=== PATIENT | female | born 1960 | race Caucasian/White ===

== ENCOUNTER 2017-04-08 08:36 | Observation (INO) ==
[2017-04-08] MEDS ORDERED: 0.9 % Sodium Chloride 1,000 ML IVC ONE (08:52)
--- NOTE | 2017-04-08 09:24 | Emergency Department Note ---
Disposition Clinical Impression: ACS (acute coronary syndrome), Acute electrocardiogram changes Syncope Qualifiers: Syncope type: unspecified Qualified Code(s): R55 - Syncope and collapse Disposition: Admitted As Inpatient Referrals: Josr Patel MD [Primary Care Provider] - Forms: ED Satisfaction Letter Time of Disposition: 11:00 General Adult HPI - General Chief complaint: ED Syncope Stated complaint: Syncope Time Seen by Provider: 04/08/17 08:41 Source: patient, family, EMS Limitations: no limitations Nursing Notes Reviewed: Yes Vital Signs Reviewed: Yes - History of Present Illness HPI Narrative: History of present illness: 56-year-old female sent from her primary care provider's office Dr. Johnson, please fax copy of ER report. Patient was sent over for near-syncope and documented hypotension and office. Patient's blood pressure was 80 systolic her blood sugar was 184 she has no Randell, Corgard artery disease long-standing uncontrolled diabetes with peripheral neuropathy. Patient is awake and alert at this current time denies any chest pain vomiting fevers chills medication changes L contacts exotic food or recent travel. Patient denies any specific injury or fully syncopal event. She says in general this is been going on for about 3 months and she has not seen her primary care provider in about that period of time so this is the first contact with providers for the symptoms. Patient says this is no aggravating or alleviating factors it can happen whether she is up or down exertion or rest. Is that she just feels washed out as some back pain. Her blood pressures dropping sweats. Denies palpitations. Denies chest pain or shortness of breath at this time. Pain Scale: 8 - Related Data Home Medications Medication Instructions Recorded Confirmed Gabapentin [Neurontin] 900 mg PO HS 07/17/15 02/06/17 Insulin ASPART [Novolog Flexpen] 0 unit SQ TIDWM 07/17/15 02/06/17 Insulin Glargine,Hum.rec.anlog 50 unit SQ HS 07/17/15 02/06/17 [Lantus Solostar] Losartan Potassium [Cozaar] 50 mg PO DAILY 07/17/15 02/06/17 Metformin HCl [Glucophage] 1,000 mg PO BID 07/17/15 02/06/17 Metoprolol [Lopressor] 25 mg PO BID 07/17/15 02/06/17 Paroxetine HCl [Paxil Cr] 20 mg PO DAILY 07/17/15 02/06/17 Rosuvastatin [Crestor] 20 mg PO DAILY 07/17/15 02/06/17 Tizanidine HCl [Zanaflex] 4 mg PO TID 07/17/15 02/06/17 Aspirin Enteric Coated [Aspirin EC] 81 mg PO DAILY 09/14/15 02/06/17 Diclofenac Sodium [Voltaren] 1 appl TP QID 09/14/15 02/06/17 Furosemide [Lasix] 20 mg PO Q48H 09/14/15 02/06/17 Ergocalciferol (VITAMIN D2) 400 unit PO DAILY 02/06/17 02/06/17 [Vitamin D] Previous Rx's Medication Instructions Recorded Albuterol Sulfate [Albuterol 2 puff IH QID #1 inhaler 02/06/17 Inhaler] Benzonatate [Tessalon] 200 mg PO TID PRN #20 capsule 02/06/17 Doxycycline 100 mg PO BID #14 capsule 02/06/17 Allergies Allergy/AdvReac Type Severity Reaction Status Date / Time aspirin Allergy Rash Verified 02/06/17 18:26 Penicillins [PCN] Allergy Rash Verified 02/06/17 18:26 duloxetine [From Cymbalta] AdvReac Headache Verified 02/06/17 18:26 All systems ED: reviewed and negative except as stated. Constitutional: Reports: weakness Neurological: Reports: other (Syncope) Past Medical History - Past Medical History Attestation: Yes The following information was validated with the patient. Source: patient, old records reviewed Medical history: Reports: diabetes, hyperlipidemia, hypertension Surgical history: Reports: cancer surgery, cholecystectomy, hysterectomy Psychiatric history: Reports: anxiety, depression - Social History Smoking Status: Current every day smoker Smokeless Tobacco Status: No Alcohol use: Reports: none Drug use: Reports: none Physical Exam - General Limitations: no limitations General appearance: alert, in no apparent distress - Head Head exam: atraumatic, normocephalic - Eye Eye exam: Present: normal appearance, PERRL, EOMI - ENT ENT exam: normal exam, normal oropharynx - Neck Neck exam: Present: normal inspection, full ROM - Chest Chest inspection: Present: normal inspection, symmetric chest wall rise - Respiratory Respiratory exam: Present: normal lung sounds bilaterally - Cardiovascular Cardiovascular exam: Present: regular rate, normal rhythm - Abdominal Exam Abdominal exam: Present: soft, Non-Tender - Extremities Exam Extremities exam: Present: normal inspection, full ROM - Expanded Lower Extremity Exam Neurovascular/Tendon exam: Present: normal capillary refill Gait: observed and normal - Back Exam Back exam: Present: normal inspection - Neurological Exam Neurological exam: Present: alert, oriented X3, CN II-XII intact - Psychiatric Psychiatric exam: Present: normal affect, normal mood - Skin Skin exam: Present: warm, dry, intact Course - Reevaluation(s) Reevaluation #1: Patient was multiple coronary artery disease risk factors, with HEART score at least 4. Discussed with patient and spouse at bedside that admission will likely be anticipated. Disposition pending Time: 09:46 Reevaluation #2: Workup was completed. CBC chemistry panel troponin and chest x-ray are all baseline within normal limits. Due to the patient's history of syncope documented hypertension and primary care provider's office and new EKG changes she will be admitted for syncope and possible ACS. Provided a total of 40 minutes of critical care services for this patient. Admission orders have been placed awaiting callback from hospitalists patient and family so informed. Time: 10:59 Vital Signs Temperature 97.8 F 04/08/17 08:38 Pulse Rate 79 04/08/17 08:38 Respiratory Rate 15 04/08/17 08:38 Blood Pressure 120/62 04/08/17 08:38 O2 Sat by Pulse Oximetry 97 04/08/17 08:38 Temperature 97.8 F 04/08/17 08:38 Pulse Rate 67 04/08/17 10:03 Respiratory Rate 22 04/08/17 10:03 Blood Pressure 118/67 04/08/17 10:03 O2 Sat by Pulse Oximetry 98 04/08/17 10:03 Oxygen Delivery Oxygen Delivery Nasal Cannula Medical Decision Making - Medical Records Medical records reviewed: Yes I reviewed the patient's medical records. - Lab Data Lab results reviewed: Yes I reviewed the patient's lab results. Result diagrams: 04/08/17 09:14 04/08/17 09:14 Lab Results 04/08/17 04/08/17 04/08/17 Range/Units 08:49 09:14 09:14 WBC 12.9 H (4.3-11.1) K/mcL RBC 4.97 (3.82-4.97) M/mcL Hgb 14.3 (11.5-15.4) g/dL Hct 43.2 (35.3-44.9) % MCV 86.9 (83.0-100.0) fL MCH 28.8 (28.0-33.3) pg MCHC 33.1 (31.6-35.5) g/dL RDW 13.8 (11.5-14.5) % Plt Count 271 (140-400) K/mcL MPV 10.4 (9.4-12.4) fL Immature Gran % 0.6 (0-4) % Seg Neutrophils % 74.5 % Lymphocytes % 19.2 % Monocytes % 4.7 % Eosinophils % 0.7 % Basophils % 0.3 % Neutrophils # 9.6 H (1.6-8.9) K/mcL Lymphocytes # 2.5 (0.6-4.6) K/mcL Monocytes # 0.6 (0.0-1.3) K/mcL Eosinophils # 0.1 (0.0-0.6) K/mcL Basophils # 0.0 (0.0-0.2) K/mcL Sodium 134 L (136-145) mEq/L Potassium 4.0 (3.5-5.1) mEq/L Chloride 104 (98-107) mEq/L Carbon Dioxide 19 L (23-29) mEq/L BUN 20 (6-20) mg/dL Creatinine 1.06 (0.60-1.20) mg/dL Est GFR ( Amer) > 60 (> 60) Est GFR (Non-Af Amer) 53 L (> 60) BUN/Creatinine Ratio 19 (6-26) Glucose 146 H (70-105) mg/dL POC Glucose 166 H (58-89) Calculated Osmolality 283 (280-300) Calcium 9.6 (8.6-10.3) mg/dL Troponin I (< 0.04) ng/mL 04/08/17 Range/Units 09:14 WBC (4.3-11.1) K/mcL RBC (3.82-4.97) M/mcL Hgb (11.5-15.4) g/dL Hct (35.3-44.9) % MCV (83.0-100.0) fL MCH (28.0-33.3) pg MCHC (31.6-35.5) g/dL RDW (11.5-14.5) % Plt Count (140-400) K/mcL MPV (9.4-12.4) fL Immature Gran % (0-4) % Seg Neutrophils % % Lymphocytes % % Monocytes % % Eosinophils % % Basophils % % Neutrophils # (1.6-8.9) K/mcL Lymphocytes # (0.6-4.6) K/mcL Monocytes # (0.0-1.3) K/mcL Eosinophils # (0.0-0.6) K/mcL Basophils # (0.0-0.2) K/mcL Sodium (136-145) mEq/L Potassium (3.5-5.1) mEq/L Chloride (98-107) mEq/L Carbon Dioxide (23-29) mEq/L BUN (6-20) mg/dL Creatinine (0.60-1.20) mg/dL Est GFR ( Amer) (> 60) Est GFR (Non-Af Amer) (> 60) BUN/Creatinine Ratio (6-26) Glucose (70-105) mg/dL POC Glucose (58-89) Calculated Osmolality (280-300) Calcium (8.6-10.3) mg/dL Troponin I < 0.03 (< 0.04) ng/mL - Radiology Data Radiology results reviewed: Yes I reviewed the patient's radiology results. - EKG Data EKG #1 EKG attestation: Yes I reviewed and interpreted this EKG. EKG results narrative: Twelve-lead EKG interpreted without Cardiologic senior administrative assistant shows: Sinus rhythm at 75 bpm, normal FL, QRS, QT corrected intervals. Nonspecific ST- T changes. An T-wave inversions in lead to 3 aVF and V3 through V6. The lateral leads from V3 to V6 are new changes when compared to prior EKG dated . However 23 and aVF have been inverted in prior EKG. Certainly these findings with the patient's symptoms of syncope and transient hypotension are concerning for myocardial ischemia.C
[2017-04-08 09:29] LABS: Basophils % 0.3 %; Eosinophils # 0.1 K/mcL (0.0-0.6); Eosinophils % 0.7 %; Hematocrit 43.2 % (35.3-44.9); Hemoglobin 14.3 g/dL (11.5-15.4); Immature Granulocytes % 0.6 % (0-4); Lymphocytes # 2.5 K/mcL (0.6-4.6); Lymphocytes % 19.2 %; Mean Corpuscular HGB Conc 33.1 g/dL (31.6-35.5); Mean Corpuscular Hemoglobin 28.8 pg (28.0-33.3); Mean Corpuscular Volume 86.9 fL (83.0-100.0); Mean Platelet Volume 10.4 fL (9.4-12.4); Monocytes # 0.6 K/mcL (0.0-1.3); Monocytes % 4.7 %; Neutrophils # 9.6 K/mcL (1.6-8.9); Platelet Count 271 K/mcL (140-400); Red Blood Count 4.97 M/mcL (3.82-4.97); Red Cell Distribution Width 13.8 % (11.5-14.5); Segmented Neutrophils % 74.5 %
[2017-04-08 09:43] LABS: Calcium 9.6 mg/dL (8.6-10.3); Carbon Dioxide 19 mEq/L (23-29); Chloride 104 mEq/L (98-107); Sodium 134 mEq/L (136-145)
[2017-04-08 09:49] LABS: BUN/Creatinine Ratio 19 (6-26); Blood Urea Nitrogen 20 mg/dL (6-20); Glucose 146 mg/dL (70-105); Osmolality,Calculated 283 (280-300); eGFR For African Americans > 60 (> 60); eGFR For Non-African Americans 53 (> 60)
[2017-04-08 11:17] LABS: Bilirubin,Urine Negative (Negative); Blood,Urine Negative (Negative); Clarity,Urine Clear (Clear); Color,Urine Yellow (Yellow); Glucose,Urine (UA) Normal (Normal); Ketones,Urine Negative (Negative); Leukocyte Esterase,Urine Negative (Negative); Nitrite,Urine Negative (Negative); Protein,Urine Negative (Neg-Trace); Specific Gravity,Urine 1.011 (1.010-1.025); Urobilinogen,Urine Normal (Normal)
[2017-04-08] MEDS ORDERED: D5% in Water 1,000 ML IVC PRN (12:41)
[2017-04-08] MEDS ORDERED: Ondansetron 4 MG/2 ML VIAL IVP PRN (12:41)
[2017-04-08] MEDS ORDERED: *HR* OxyCODONE Immed Rel 5 MG TABLET PO PRN (12:41)
[2017-04-08] MEDS ORDERED: Acetaminophen 325 MG TABLET PO PRN (12:41)
[2017-04-08] MEDS ORDERED: *HR* Dextrose 50 % in Water (Syg) 50 ML SYRINGE IVP PRN (12:41)
[2017-04-08] MEDS ORDERED: Naloxone 0.4 MG/ML INJ IVP PRN (12:41)
[2017-04-08] MEDS ORDERED: Dextrose Gel 15 GM/37.5 ML TUBE PO PRN ×2 (12:41)
--- NOTE | 2017-04-08 12:55 | Internal Med History&Physical ---
Date of Encounter: 04/08/17 Time of Encounter: 12:51 Assessment and Plan (1) Near syncope Current visit: Yes Status: Acute Likely related to hypotension, possibly tizanidine The patient was on tizanidine which causes hypotension and bradycardia and may be responsible for syncopal episodes We will hold his medication Because of her EKG changes, we will consult cardiology, ordered an echocardiogram, telemetry monitored Munns drained, troponins Full precautions, check orthostatics, hold tizanidine and administer IV fluids Omeprazole for GI prophylaxis and subcutaneous heparin for DVT prophylaxis. The patient will be admitted for observation. Full code. Time spent on this admission 40 minutes (2) Chest pressure Current visit: Yes Status: Acute May repeat EKG (3) Palpitations Current visit: Yes Status: Acute (4) Tobacco abuse Current visit: Yes Status: Acute Smoking cessation counseling, nicotine patch (5) Acute electrocardiogram changes Current visit: Yes Status: Acute (6) Diabetes Current visit: No Status: Chronic Insulin sliding scale Qualifiers: Diabetes mellitus type: type 2 Diabetes mellitus complication status: with circulatory complication Diabetes mellitus complication detail: with other circulatory complications Diabetes mellitus terminal gauger insulin use: with terminal gauger use Qualified Code(s): E11.59 - Type 2 diabetes mellitus with other circulatory complications; Z79.4 - residential (current) use of insulin (7) Hyperlipidemia Current visit: No Status: Chronic Qualifiers: Hyperlipidemia type: unspecified Qualified Code(s): E78.5 - Hyperlipidemia , unspecified (8) Hypertension Current visit: Yes Status: Acute Hold losartan to hypotension Qualifiers: Hypertension type: essential hypertension Qualified Code(s): I10 - Essential (primary) hypertension Internal Medicine - H&P: HPI Chief complaint: Near syncope Admitted From: Emergency Dept History of present illness: Ms. Weir is a 56 year old female with a past medical history of diabetes type 2 insulin-dependent, neuropathy, COPD, tobacco use and prior syncopal episodes was transferred to the emergency room from her primary care physician's office as she had an episode of near syncope. Patient says that she experienced some chest pressure, palpitations and very nonspecific symptoms such as diaphoreses, diarrhea and nausea accompanied by abdominal cramps. These episodes happen sometimes once a week. She cannot give many details of how long she was apparently out but was less then just a few minutes. The patient said that she experienced chest pressure for about 30 minutes. EKG shows new T-wave inversions in leads V3 through V6. At the moment she denies any chest pain/ pressure. White blood cell count is 12.9 sodium 134 glucose 166. Her primary Care physician office her blood pressure apparently was in the 80s. Chest x- ray does not show any cardio-pulmonary abnormalities. Has been experiencing some dizziness when she stands up. Does not appear dehydrated Past Med Surg Social Fam HX - Past Medical History Medical history: diabetes (insulin dep), hyperlipidemia, hypertension, other ( Neuropathy, CAD, depression, tobacco use, history of left ICA stenosis status post endarterectomy, syncopal episodes in the past, ovarian cancer in 2004 and fatty liver) Psychiatric history: anxiety, depression - Past Surgical History Surgical History: cancer surgery (Hysterectomy oophorectomy due to ovarian cancer , normal stress test in November 2015, echocardiogram of August 2015 shows an ejection fraction of 60% and mild diastolic dysfunction), cholecystectomy, hysterectomy - Social History Smoking Status: Current every day smoker Packs per day: Half-pack per day Smokeless Tobacco Status: No Alcohol use: none Drug use: none - Additional Family History Additional family history: Brother with lung cancer, Lyme Disease, father with diabetes brain cancer. Sister with uterine cancer and diabetes, mother with hypertension Internal Medicine - H&P: Meds Gabapentin [Neurontin] 900 mg PO HS 07/17/15 [History] Insulin ASPART [Novolog Flexpen] 0 unit SQ TIDWM 07/17/15 [History] Insulin Glargine,Hum.rec.anlog [Lantus Solostar] 50 unit SQ HS 07/17/15 [History ] Losartan Potassium [Cozaar] 50 mg PO DAILY 07/17/15 [History] Metformin HCl [Glucophage] 1,000 mg PO BID 07/17/15 [History] Metoprolol [Lopressor] 25 mg PO BID 07/17/15 [History] Paroxetine HCl [Paxil Cr] 20 mg PO DAILY 07/17/15 [History] Rosuvastatin [Crestor] 20 mg PO DAILY 07/17/15 [History] Tizanidine HCl [Zanaflex] 4 mg PO TID 07/17/15 [History] Aspirin Enteric Coated [Aspirin EC] 81 mg PO DAILY 09/14/15 [History] Diclofenac Sodium [Voltaren] 1 appl TP QID 09/14/15 [History] Albuterol Sulfate [Albuterol Inhaler] 2 puff IH QID #1 inhaler 02/06/17 [Rx] Ergocalciferol (VITAMIN D2) [Vitamin D] 400 unit PO DAILY 02/06/17 [History] 3 Allergy/AdvReac Type Severity Reaction Status Date / Time aspirin Allergy Rash Verified 04/08/17 11:08 Penicillins [PCN] Allergy Rash Verified 04/08/17 11:08 duloxetine [From Cymbalta] AdvReac Headache Verified 04/08/17 11:08 All Systems PM: A 10-system review of systems was performed and is negative for pertinent findings except as documented above in the HPI. Review of systems: No chest pain at the moment, no dizziness, no fevers, has a dry cough, no sick contacts. Other systems out of the 10 reviewed were negative - Constitutional Vitals: Temp Pulse Resp BP Pulse Ox 97.8 F 74 14 124/73 96 04/08/17 12:38 04/08/17 12:38 04/08/17 12:38 04/08/17 12:38 04/08/17 12:38 General appearance: Present: A&O X 3 - Head Head exam: Present: atraumatic, normocephalic - Eye Eye exam: Present: PERRL, conjuntiva pink, sclera anicteric Pupils: Present: PERRL - Neck Neck exam general surgery: Present: supple, trachea midline. Absent: lymphadenopathy - Respiratory Respiratory exam: Present: CTAB. Absent: accessory muscle use, rales, rhonchi, wheezes - Cardiovascular Cardiovascular exam: Present: RRR, +S1, +S2. Absent: diastolic murmur, gallop, rubs, systolic murmur - GI/Abdominal GI/Abdominal exam: Present: normal bowel sounds, soft, no peritoneal signs. Absent: distended, tenderness - Extremities Exam Extremities exam: Present: warm, radial pulses palpable and symmetrical. Absent : calf tenderness, cyanotic, pedal edema - Neurological Exam Neurological exam: Present: CN II-XII intact, oriented X3, no focal deficits. Absent: pronater drift, facial droop, speech deficit - Skin Skin exam: Present: dry, intact Internal Med - H&P Results - Labs CBC & Chem 7: 04/08/17 09:14 04/08/17 09:14
[2017-04-08] MEDS: 0.9 % Sodium Chloride 1,000 ML IVC SCH (13:08)
--- NOTE | 2017-04-08 13:27 | Cardiology Consult Note ---
<Yesy Sosa Clara - Last Filed: 04/08/17 13:53> Date of Encounter: 04/08/17 Time of Encounter: 13:30 Assessment and Plan (1) Chest pain Current Visit: Yes Status: Acute Patient reports intermittent chest pressure/heaviness for the past 1+ year. Inferolateral ST/T wave changes noted per ECG. Initial troponin negative. Pain free upon exam. Recent negative nuclear stress test 2015. Risk factors for CAD: hx of PAD, tobacco use, insulin dependent DMII, HTN, HLD, and family history. Cycle troponin x3. Check echocardiogram. Continue asa (pt. takes asa-81 at home), statin, and betablocker. Recommend LHC with possible PCI; alternatives, risks, and benefits discussed. She is agreeable to proceed. NPO after MN except medications, plan for LHC 04/09/17. Qualifiers: Chest pain type: chest pain due to myocardial ischemia Ischemic chest pain type: unstable angina pectoris Qualified Code(s): I20.0 - Unstable angina (2) Syncope Current Visit: Yes Status: Acute Suspect orthostatic in etiology. Obtain orthostatic BP's. Obtain echocardiogram. Qualifiers: Syncope type: vasovagal syncope Qualified Code(s): R55 - Syncope and collapse (3) Hyperlipidemia Current Visit: No Status: Chronic Continue high-intensity statin. Qualifiers: Hyperlipidemia type: mixed hyperlipidemia Qualified Code(s): E78.2 - Mixed hyperlipidemia (4) Tobacco abuse Current Visit: Yes Status: Acute Smoking cessation counseling provided. 0.5 ppd/day x40 years. (5) Carotid arterial disease Current Visit: No Status: Acute s/p right CEA September 2015 Left prox ICA 60-79% stenosis per duplex 02/18/16--medical mgmt. Follows with as outpatient. Cont asa and statin. Qualifiers: Laterality: bilateral Qualified Code(s): I77.9 - Disorder of arteries and arterioles, unspecified Discussion w patient/family: The assessment and plan as outlined above was discussed with the patient and/or family members who expressed understanding and agreement. All questions were answered. Thank you for involving us in the care of your patient. Please call with any questions. The patient will be discussed and reviewed with Dr. Lo; changes to be made accordingly. History of Present Illness Consult date: 04/08/17 Requesting physician: Sudarshan Trinidad Consult reason: ECG changes, syncope Chief complaint: Syncope History of present illness: Ms. Weir is a 56 year old female with PMHx significant for DMII, HTN, HLD, PAD s/p right CEA, tobacco use, and chronic back pain who presented to the ED from PCP office due to a syncopal episode this morning at the PCP office. Patient reports similar ongoing episodes over the past month. Reports syncopal episodes are triggered by severe back pain that occurs when she stands >30 minutes at a time, episodes also occur at times when she has a bowel movement. Upon arrival to the office her SBP was in the 130s, due to severe pain she became sweaty and diaphoretic and had to sit down, SBP at that time was in the 80's. After episodes, she describes shortness of breath and palpitations. She also reports significant fatigue over the past 1+ year, she is unable to climb stairs or participate in normal activity. Reports intermittent chest pressure with radiation down both arms over the past year, symptoms worsen with any exertion. Upon arrival to ED, inferolateral ST/T wave changes were noted. Blood pressure stable. Troponin negative. Prior CV testing: Regadenoson nuclear 12/03/15: perfusion imaging negative for ischemia or infarct, gated EF >70% TTE 09/12/15: EF 60% mild LVDD, no PH, normal wall motion Carotid duplex 02/18/16: left proximal ICA (60-79%) severe stenosis. s/p right CEA Past Med Surg Social Fam HX - Past Medical History Attestation: Yes The following information was validated with the patient. Source: patient Medical history: diabetes (insulin dep), hyperlipidemia, hypertension, peripheral artery disease, other (Neuropathy, CAD, depression, tobacco use, history of left ICA stenosis status post endarterectomy, syncopal episodes in the past, ovarian cancer in 2004 and fatty liver) Psychiatric history: anxiety, depression - Past Surgical History Surgical History: cancer surgery (Hysterectomy oophorectomy due to ovarian cancer , normal stress test in November 2015, echocardiogram of August 2015 shows an ejection fraction of 60% and mild diastolic dysfunction), cholecystectomy, hysterectomy - Social History Smoking Status: Current every day smoker Packs per day: Half-pack per day Smokeless Tobacco Status: No Alcohol use: none Drug use: none Medications and Allergies Gabapentin [Neurontin] 900 mg PO HS 07/17/15 [History] Insulin ASPART [Novolog Flexpen] 0 unit SQ TIDWM 07/17/15 [History] Insulin Glargine,Hum.rec.anlog [Lantus Solostar] 50 unit SQ HS 07/17/15 [History ] Losartan Potassium [Cozaar] 50 mg PO DAILY 07/17/15 [History] Metformin HCl [Glucophage] 1,000 mg PO BID 07/17/15 [History] Metoprolol [Lopressor] 25 mg PO BID 07/17/15 [History] Paroxetine HCl [Paxil Cr] 20 mg PO DAILY 07/17/15 [History] Rosuvastatin [Crestor] 20 mg PO DAILY 07/17/15 [History] Tizanidine HCl [Zanaflex] 4 mg PO TID 07/17/15 [History] Aspirin Enteric Coated [Aspirin EC] 81 mg PO DAILY 09/14/15 [History] Diclofenac Sodium [Voltaren] 1 appl TP QID 09/14/15 [History] Albuterol Sulfate [Albuterol Inhaler] 2 puff IH QID #1 inhaler 02/06/17 [Rx] Ergocalciferol (VITAMIN D2) [Vitamin D] 400 unit PO DAILY 02/06/17 [History] 3 Allergy/AdvReac Type Severity Reaction Status Date / Time aspirin Allergy Mild See Verified 04/08/17 14:02 Comments Penicillins [PCN] Allergy Rash Verified 04/08/17 11:08 duloxetine [From Cymbalta] AdvReac Headache Verified 04/08/17 11:08 All Systems Review: A 10-system review of systems was performed and is negative for pertinent findings except as documented above in the HPI. - Cardiovascular Cardiovascular: as per HPI Physical Examination Vital Signs, Last 4 Hours Temp Pulse Resp BP Pulse Ox 04/08/17 12:38 97.8 F 74 14 124/73 96 General: Conversant, No Apparent Distress HEENT: Atraumatic, Normocephaly, Mucus Membranes Moist Cardiac: Reg Rate and Rhythm, Normal S1 and S2 Lungs: Normal Breath Sounds Neuro: Alert and responsive Abdomen: Soft Skin: No rashes noted on visualized skin Musculoskeletal: No Chest Wall Tenderness Extremities: No Edema, Normal Pulses Results 04/08/17 09:14 04/08/17 09:14 Lab Results 04/08/17 12:56 Troponin I < 0.03 Active Medications Acetaminophen (Tylenol) 650 mg PO Q6HR PRN PRN Reason: Mild Pain (1-3) Stop: 10/08/17 12:42 Aspirin (Aspirin) 81 mg PO DAILY [facility] Stop: 10/09/17 09:01 Dextrose/Water (Dextrose 50% (Syg)) 25 ml IVP AD PRN PRN Reason: Hypoglycemia Stop: 10/08/17 12:42 Gabapentin (Neurontin) 900 mg PO HS [facility] Stop: 10/08/17 21:01 Glucagon (Glucagen) 1 mg IM ONCE PRN PRN Reason: Hypoglycemia Stop: 10/08/17 12:42 Glucose (Gluctose) 15 gm PO ONCE PRN PRN Reason: Hypoglycemia Stop: 10/08/17 12:42 Glucose (Gluctose) 30 gm PO ONCE PRN PRN Reason: Hypoglycemia Stop: 10/08/17 12:42 Sodium Chloride (0.9 % Sodium Chloride) 1,000 mls @ 75 mls/hr IVC .[id number] [facility] Stop: 04/09/17 15:24 Last Admin: 04/08/17 13:08 Dose: 75 mls/hr Dextrose (Dextrose 5%) 1,000 mls @ 100 mls/hr IVC .Q10H PRN PRN Reason: HYPOGLYCEMIA Stop: 10/08/17 12:42 Insulin Detemir (Levemir) 50 unit SQ HS [facility] Stop: 10/08/17 21:01 Insulin Human Lispro (Humalog) 0 units SQ HS [facility] PRN Reason: Protocol Stop: 10/08/17 21:01 Insulin Human Lispro (Humalog) 0 units SQ TIDAC [facility] PRN Reason: Protocol Stop: 10/08/17 16:31 Metoprolol Tartrate (Lopressor) 25 mg PO BID [facility] Stop: 10/08/17 21:01 Naloxone HCl (Narcan) 0.4 mg IVP Q2MIN PRN PRN Reason: Opioid Reversal Stop: 10/08/17 12:42 Ondansetron HCl (Zofran) 4 mg IVP Q8HR PRN PRN Reason: Nausea And Vomiting Stop: 10/08/17 12:42 Oxycodone HCl (Roxicodone) 5 mg PO Q6HR PRN PRN Reason: Moderate Pain (4-6) Stop: 10/08/17 12:42 Paroxetine HCl (Paxil) 20 mg PO DAILY [facility] Stop: 10/09/17 09:01 Rosuvastatin Calcium (Crestor) 20 mg PO HS [facility] Stop: 10/09/17 21:01 - Imaging and Cardiology Stress Test: report reviewed Echo: report reviewed - EKG Interpretation EKG results cardiology: personally reviewed Consult Discharge Plan - Plan Referrals: Josr Patel MD [Primary Care Provider] - <Andres Lo - Last Filed: 04/09/17 16:53> Date of Encounter: 04/08/17 Time of Encounter: 10:00 - Attending Attestation I have personally performed a face to face evaluation on this patient. I have reviewed and agree with the care plan. History and Exam by me shows: CC: chest pain Pt presents with complaints of a syncopal episode the morning of admission, at her primary care physcians office. Pt reports when she experiences progressive back pain with prolonged standing, passes out. She notes these events also occur with straining during a bowel movement. She usually feels herself going out, and get flat before she falls down, but has fallen on several occasions. She reports she is fatiqued, has shortness of breath and palpitations after the event. She also complains of chest pain, mid epigastric, occurs with exertion, 6/10, radiates down both arms, associated with shortness of breath, lasts up to ten minutes, resolves with rest. She is pain free at this time. PE: reviewed, agree with above. IMP; 1. Chest pain, resolved, with new inferior lateral EKG changes suggestive of ischemia, recommend LHC/possible, discussed risks and benefits, she elects to proceed, will continue to cycle cardiac enzemes, NPO at midnight for LHC am 04/09 2. Syncope: known symptoms of vasomotor syncope, monitor orthostatic vitals, evel echocardiogram, may consider tilt table test if LHC and orthostatics are negative. 3. Tobacco abuse, continues to smoke up to 10 cigs a day against medical advice , discussed smoking cessation, she declines pharmocologic support. 4. Carotid Artery disease, post right CEA 09/28, monitoring residual stenosis left carotid with Dr. Castaneda. Assessment and Plan Discussion w patient/family: The assessment and plan as outlined above was discussed with the patient and/or family members who expressed understanding and agreement. All questions were answered. Thank you for involving us in the care of your patient. Please call with any questions. History of Present Illness History of present illness: Ms. Weir is a 56 year old female All Systems Review: A 10-system review of systems was performed and is negative for pertinent findings except as documented above in the HPI. Physical Examination Vital Signs, Last 4 Hours Pulse Resp BP Pulse Ox 04/09/17 16:00 75 16 148/64 95 04/09/17 14:00 82 16 134/70 94 04/09/17 13:35 74 16 147/73 97 04/09/17 13:20 83 16 143/76 99 04/09/17 13:05 66 16 133/68 97 04/09/17 12:50 67 16 138/68 98 Results 04/09/17 00:44 04/09/17 00:44 Lab Results 04/08/17 04/09/17 04/09/17 18:39 00:44 00:44 WBC 9.1 Hgb 12.1 D Hct 37.6 Plt Count 216 Sodium Potassium Chloride Carbon Dioxide BUN Creatinine Glucose Calcium Magnesium Total Bilirubin AST ALT Alkaline Phosphatase Troponin I < 0.03 < 0.03 04/09/17 00:44 WBC Hgb Hct Plt Count Sodium 135 L Potassium 4.0 Chloride 107 Carbon Dioxide 22 L BUN 19 Creatinine 0.95 Glucose 118 H Calcium 8.8 Magnesium 1.7 Total Bilirubin 0.3 AST 12 L ALT 9 Alkaline Phosphatase 98 Troponin I
[2017-04-08] MEDS ORDERED: Ipratropium/Albuterol Neb 3 ML IH PRN (13:43)
[2017-04-08] MEDS: Nicotine 21 MG PATCH.TD24 TD SCH (14:07)
[2017-04-08] MEDS: *HR* Heparin 5,000 UNIT/ML VIAL SQ SCH ×2 (14:08→20:32)
[2017-04-08] MEDS: Insulin LISPRO 300 UNITS/3 ML VIAL SQ SCH ×2 (17:29→20:36)
[2017-04-08] MEDS: Gabapentin 300 MG CAPSULE PO SCH (20:32)
[2017-04-08] MEDS: Insulin DETEMIR 100 UNIT/ML X5UNITS SQ SCH (20:36)
[2017-04-09 00:51] LABS: Basophils % 0.4 %; Eosinophils # 0.1 K/mcL (0.0-0.6); Eosinophils % 1.5 %; Hematocrit 37.6 % (35.3-44.9); Hemoglobin 12.1 g/dL (11.5-15.4); Immature Granulocytes % 0.3 % (0-4); Lymphocytes % 44.4 %; Mean Corpuscular HGB Conc 32.2 g/dL (31.6-35.5); Mean Corpuscular Hemoglobin 28.4 pg (28.0-33.3); Mean Corpuscular Volume 88.3 fL (83.0-100.0); Mean Platelet Volume 10.1 fL (9.4-12.4); Monocytes # 0.5 K/mcL (0.0-1.3); Monocytes % 5.8 %; Neutrophils # 4.3 K/mcL (1.6-8.9); Platelet Count 216 K/mcL (140-400); Red Blood Count 4.26 M/mcL (3.82-4.97); Red Cell Distribution Width 13.8 % (11.5-14.5); Segmented Neutrophils % 47.6 %
[2017-04-09 02:53] LABS: Alanine Aminotransferase 9 Units/L (7-52); Albumin 3.3 g/dL (3.5-5.7); Albumin/Globulin Ratio 1.1 (1.1-2.2); Alkaline Phosphatase 98 Units/L (34-104); Aspartate Amino Transferase 12 Units/L (13-39); BUN/Creatinine Ratio 20 (6-26); Bilirubin,Total 0.3 mg/dL (0.3-1.0); Blood Urea Nitrogen 19 mg/dL (6-20); Calcium 8.8 mg/dL (8.6-10.3); Carbon Dioxide 22 mEq/L (23-29); Chloride 107 mEq/L (98-107); Chol/HDL Ratio 9.2 (0-4.9); Cholesterol 238 mg/dL (< 200); Globulin 2.9 g/dL (2.4-3.5); Glucose 118 mg/dL (70-105); HDL Cholesterol 26 mg/dL (40-59); Magnesium 1.7 mg/dL (1.6-2.6); Osmolality,Calculated 283 (280-300); Phosphorous 3.3 mg/dL (2.7-4.5); Sodium 135 mEq/L (136-145); Total Protein 6.2 g/dL (6.4-8.9); Triglycerides 564 mg/dL (< 150); eGFR For African Americans > 60 (> 60); eGFR For Non-African Americans > 60 (> 60)
[2017-04-09] MEDS: *HR* Heparin 5,000 UNIT/ML VIAL SQ SCH ×3 (05:14→21:50)
[2017-04-09] MEDS: 0.9 % Sodium Chloride 1,000 ML IVC SCH (05:15)
[2017-04-09] MEDS: Insulin LISPRO 300 UNITS/3 ML VIAL SQ SCH ×4 (08:09→21:14)
--- NOTE | 2017-04-09 08:17 | Internal Med Progress Note ---
<Tien Barnett - Last Filed: 04/09/17 15:28> Date of Encounter: 04/09/17 Time of Encounter: 08:13 - Assessment and plan (1) Near syncope Current Visit: Yes Status: Acute Assessment and plan: multiple month history of pre-syncopal episodes. CAD risk factors: diabetes, hld, htn, smoking, previous hx of PAD, and family hx. trops negative - cardiology following - echo today - LVEF 60-65%, normal wall motion - LHC today - pending - NPO except medications - educated patient on lifestyle modifications - continue ASA81, statin, BB (2) Acute electrocardiogram changes Current Visit: Yes Status: Acute Assessment and plan: Inferolateral ST/T wave changes noted per ECG (3) Chest pressure Current Visit: Yes Status: Acute Assessment and plan: see above (4) Hyperlipidemia Current Visit: Yes Status: Chronic Assessment and plan: high intensity statin Qualifiers: Hyperlipidemia type: mixed hyperlipidemia Qualified Code(s): E78.2 - Mixed hyperlipidemia (5) Hypertension Current Visit: Yes Status: Acute Assessment and plan: hold losartan for now. currently stable. continue to closely monitor Qualifiers: Hypertension type: essential hypertension Qualified Code(s): I10 - Essential (primary) hypertension (6) Palpitations Current Visit: Yes Status: Acute Assessment and plan: see above (7) Tobacco abuse Current Visit: Yes Status: Acute Assessment and plan: continues to smoke, educated patient on smoking cessation. to follow up with PCP. - Subjective Interval history: Ms Weir 56 yo female w/ pmhx of t2dm, neuropathy, COPD, tobacco, and previous presyncopal episodes presented to ED after having a preysncopal episode at her PCP's office. Patient reports to have felt fluttering in her chest, diaphoretic , bowel movement coming on, closed off vision, weakness in the knees. Today she reports that her symptoms have resolved. She denies chest pain, chest fluttering, numbness and tingling in the arms or legs, diaphoresis. - Constitutional Vitals: Temp Pulse Resp BP Pulse Ox 98.3 F 71 16 116/59 96 04/09/17 05:01 04/08/17 23:40 04/08/17 23:40 04/08/17 23:40 04/08/17 23:40 General appearance: Present: A&O X 3 - Respiratory Respiratory exam: Present: CTAB. Absent: accessory muscle use, rales, rhonchi, wheezes - Cardiovascular Cardiovascular exam: Present: RRR, +S1, +S2. Absent: diastolic murmur, gallop, rubs, systolic murmur - GI/Abdominal GI/Abdominal exam: Present: normal bowel sounds, soft, no peritoneal signs. Absent: distended, tenderness - Extremities Exam Extremities exam: Present: warm, radial pulses palpable and symmetrical. Absent : calf tenderness, cyanotic, pedal edema - Psychiatric Psychiatric exam: Present: normal affect, normal mood Internal Medicine: Result - Labs CBC & Chem 7: 04/09/17 00:44 04/09/17 00:44 Labs: Short CBC 04/09/17 Range/Units 00:44 WBC 9.1 (4.3-11.1) K/mcL Hgb 12.1 D (11.5-15.4) g/dL Hct 37.6 (35.3-44.9) % Plt Count 216 (140-400) K/mcL Neutrophils # 4.3 (1.6-8.9) K/mcL BMP 04/09/17 00:44 Sodium 135 L Potassium 4.0 Chloride 107 Carbon Dioxide 22 L BUN 19 Creatinine 0.95 Glucose 118 H Calcium 8.8 Cardiac Enzymes 04/08/17 04/08/17 04/09/17 Range/Units 12:56 18:39 00:44 Troponin I < 0.03 < 0.03 < 0.03 (< 0.04) ng/mL Liver Function 04/09/17 Range/Units 00:44 Total Bilirubin 0.3 (0.3-1.0) mg/dL AST 12 L (13-39) Units/L ALT 9 (7-52) Units/L Alkaline Phosphatase 98 (34-104) Units/L Albumin 3.3 L (3.5-5.7) g/dL Consult Discharge Plan - Plan Referrals: Josr Patel MD [Primary Care Provider] - <Jos Brown - Last Filed: 04/09/17 19:47> Date of Encounter: 04/09/17 - Assessment and plan (1) ACS (acute coronary syndrome) Current Visit: Yes Status: Acute (2) Diabetes Current Visit: No Status: Chronic Qualifiers: Diabetes mellitus type: type 2 Diabetes mellitus complication status: with circulatory complication Diabetes mellitus complication detail: with other circulatory complications Diabetes mellitus fpc insulin use: with watermaster use Qualified Code(s): E11.59 - Type 2 diabetes mellitus with other circulatory complications; Z79.4 - penitentiary (current) use of insulin (3) Hypertension Current Visit: Yes Status: Acute Qualifiers: Hypertension type: essential hypertension Qualified Code(s): I10 - Essential (primary) hypertension - Constitutional Vitals: Temp Pulse Resp BP Pulse Ox 97.5 F L 70 18 138/80 96 04/09/17 17:48 04/09/17 17:48 04/09/17 17:48 04/09/17 17:48 04/09/17 17:48 Internal Medicine: Result - Labs CBC & Chem 7: 04/09/17 00:44 04/09/17 00:44 Labs: Short CBC 04/09/17 Range/Units 00:44 WBC 9.1 (4.3-11.1) K/mcL Hgb 12.1 D (11.5-15.4) g/dL Hct 37.6 (35.3-44.9) % Plt Count 216 (140-400) K/mcL Neutrophils # 4.3 (1.6-8.9) K/mcL BMP 04/09/17 00:44 Sodium 135 L Potassium 4.0 Chloride 107 Carbon Dioxide 22 L BUN 19 Creatinine 0.95 Glucose 118 H Calcium 8.8 Cardiac Enzymes 04/09/17 Range/Units 00:44 Troponin I < 0.03 (< 0.04) ng/mL Liver Function 04/09/17 Range/Units 00:44 Total Bilirubin 0.3 (0.3-1.0) mg/dL AST 12 L (13-39) Units/L ALT 9 (7-52) Units/L Alkaline Phosphatase 98 (34-104) Units/L Albumin 3.3 L (3.5-5.7) g/dL - Impressions Impressions Echocardiogram 04/08/17 12:41 Impressions: LVEF 60-65%. Normal left ventricular diastolic function. Normal right ventricular structure and function. Mild tricuspid regurgitation. No pulmonary hypertension. Left Ventricular Wall Motion: Rest Echo Findings All wall segments showed normal motion. Findings: Study Quality * Technically adequate exam. ECG Findings * Normal sinus rhythm. Left Ventricle * LVEF 60-65%. * Normal LV chamber size, wall thickness and function. * Normal left ventricular diastolic function. Right Ventricle * Normal right ventricular structure and function. Left Atrium * Normal left atrial size. Right Atrium * Normal right atrial size. Aortic Valve * No aortic regurgitation. * Trileaflet aortic valve. * No aortic stenosis. Mitral Valve * Normal mitral valve structure. * No mitral regurgitation. * No mitral stenosis. Tricuspid Valve * Normal tricuspid valve structure. * Mild tricuspid regurgitation. * Estimated RA pressure is 3 mmHg. Pulmonic Valve * Pulmonic valve is not well visualized. * No pulmonic stenosis. * No pulmonic regurgitation. Pulmonary Artery * Pulmonary artery not well visualized. Aorta * Normally sized aortic root. * Ascending aorta is not well visualized. Pericardium * There is no pericardial effusion present. Interatrial Septum * No evidence of PFO by color Doppler. IVC * Normal IVC dimensions and inspiratory collapse. - Attending Attestation I examined this patient and my medical decision-making was reviewed with the Resident Physician on 04/09/17. I agree with the documented findings, disposition and treatment plan as described except to the extent set forth below. Ms Weir is currently in observation for acute EKG changes. She is to have cath today. Exam Alert. Comfortable Heart reg No wheeze Abd soft I/P 1. CAD Further diagnoses and plan as above
[2017-04-09] MEDS: Aspirin 81 MG TAB.CHEW PO SCH (08:33)
--- NOTE | 2017-04-09 08:57 | Electrocardiograph Report ---
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
[2017-04-09] MEDS ORDERED: *HR* Heparin 10,000 UNIT/10 ML VIAL ONE (09:54)
[2017-04-09] MEDS ORDERED: Heparin 1,000 UNITS/500 mL 500 ML ONE (09:54)
[2017-04-09] MEDS ORDERED: 0.9 % Sodium Chloride 1,000 ML ONE (09:54)
[2017-04-09] MEDS ORDERED: Nitroglycerin 1,000 MCG/10 ML VIAL IV ONE (09:54)
[2017-04-09] MEDS ORDERED: *HR* Midazolam HCl 2 MG/2 ML VIAL ONE ×2 (09:58→10:26)
[2017-04-09] MEDS ORDERED: *HR* FentaNYL (PF) 100 MCG/2 ML VIAL ONE (09:58)
[2017-04-09] MEDS ORDERED: Verapamil 5 MG/2 ML VIAL ONE (09:58)
--- NOTE | 2017-04-09 10:09 | Pre-Sedation Evaluation ---
Pre-sedation evaluation - Pre-sedation checklist Date of procedure: 04/09/17 Procedure: [facility] Recent Vitals: Last Vital Signs Temp 97.8 F 04/09/17 08:00 Pulse 75 04/09/17 08:00 Resp 16 04/09/17 08:00 BP 155/82 04/09/17 08:00 Pulse Ox 96 04/09/17 09:06 H&P (including ROS) documented in medical record: Yes Previous reaction to sedatives/anesthetics: No Dietary Status: NPO after Midnight Airway Assessment: Patient can open mouth completely, TMJ function normal ASA Classification *see protocol: CLASS II-Mild systemic disease Plan of Care: Pt appropriate candidate for procedure/moderate/conscious sedation , Risks/benefits of procedure/sedation discussed w/ patient/family
[2017-04-09] MEDS ORDERED: Tirofiban 5 MG/100 mL 5 MG/100 ML VIAL IV ONE (10:46)
--- NOTE | 2017-04-09 11:10 | Invasive Diagnostic Lab Proc ---
Name: Haylee Weir Date of Study: 04/09/2017 Date: 1960 Ht: 68.9in Medical Record#: [id number] Age: 56 Wt: 187.83lb Gender: Female BSA: 2.01 Order #: [id number] BMI: 27.82 Physicians Procedure Physician: Lyle Roblero MD, [facility] Referring MD: Referring MD: Staff Name Position Time In Mohamud Millan RT (R) Monitor 10:01 AM MontyCharmaine RT (R) Scrub 10:01 AM Noemy Byrne RN Managed Care Provider 10:02 AM Elisabet Mccormick RN Managed Care Provider 10:02 AM Indications Indication Unstable Angina Procedures Performed Procedure L HRT ARTERY/VENTRICLE ANGIO IV Doppler BLD Flow 1st Vessel PRQ CARD ADNI STENT W/ANGIO 1 VSL Pre-Procedure Checklist Informed consent is complete signed and on chart. H&P is on chart. ID band is on and ID verified with patient. Patient NPO for procedure The procedure was described for the patient and questions were answered. Blood Pressure: 116/59 ECG is on chart. Rhythm: NSR Plan of Care Patient will tolerate the procedure without complications. Adequate level of comfort will be maintained. Hemodynamics will remain stable Patient will recover from procedure without complications. Respiratory function will be maintained. Cardiac rhythm will remain stable. Patient temperature will be maintained. Patient and/or family have verbalized understanding of the procedure. Patient Education Chief Complaint/Reason for Test: Cardiac Cath Developmental Category: Adult (18-64 years) Developmentally Appropriate for Age: Yes Learning Barriers: None Education Needs: Procedure Education Method: Verbal Information Taught: Cardiac Cath Educational Evaluation: Able to repeat information Intravenous Access Time IV Size Location DC'd Fluid/Drip Rate Units RN 08:43 AM 20g 1 03/19" Patent On Arrival Lt Arm 0.9NaCl 25 ml/hr Noemy Byrne RN Allergies Penicillin duloxetine Vital Signs Time BP (mmHg) HR (bpm) O2 Sat. RR (bpm) LOC 08:43 AM 116 / 59 71 96 % 16 5 = Fully awake and oriented or at pre-proc level 10:02 AM / % 5 = Fully awake and oriented or at pre-proc level 10:02 AM / % 4 = Oriented but drowsy 10:17 AM / % 4 = Oriented but drowsy 10:32 AM / % 4 = Oriented but drowsy 10:06 AM 168 / 74 73 97 % 15 10:11 AM 158 / 75 71 96 % 23 10:16 AM 140 / 71 70 96 % 22 10:21 AM 132 / 72 70 96 % 14 10:26 AM 140 / 72 71 97 % 17 10:31 AM 110 / 66 80 95 % 18 10:36 AM 124 / 61 76 94 % 16 10:41 AM 130 / 61 73 94 % 15 10:46 AM 127 / 54 72 94 % 15 10:51 AM 118 / 60 75 95 % 14 10:48 AM / % 5 = Fully awake and oriented or at pre-proc level Procedural Medications Time Medication Dose Units Method Given By 10:06 AM Oxygen 2 L/min nasal cannula Elisabet Mccormick RN 10:07 AM Versed 2 mg Intravenous Noemy Byrne RN 10:07 AM Fentanyl 50 mcg Intravenous Noemy Byrne RN 10:25 AM Lidocaine 2% 0.5 ml Subcutaneous Lyle Roblero MD, FACC 10:26 AM Versed 2 mg Intravenous Elisabet Mccormick RN 10:27 AM Fentanyl 25 mcg Intravenous Elisabet Mccormick RN 10:27 AM Heparin 4000 units Nitroglycerin 200 mcg Verapamil 2.5 mg Intraarterial Lyle Roblero MD, FACC 10:39 AM Nitroglycerin 200 mcg Intracoronary Lyle Roblero MD 10:41 AM Adenosine 714 ml/hr Intravenous elisabet mccormick rn 10:47 AM Heparin 2000 units Intravenous Elisabet Mccormick RN 10:51 AM Aggrastat Bolus: 42 ml Intravenous Elisabet Mccormick RN 10:51 AM Aggrastat 12.5mg/250ml 15 ml Intravenous Elisabet Mccormick RN 11:00 AM Plavix 600 mg Orally Elisabet Mccormick RN ASA Classification: CLASS II- Mild systemic disease (i.e. well-controlled diabetes, hypertension, asthma, cigarette smoking) Prasanna Score Preprocedure Postprocedure Activity 2- Moves 4 extremities sustained head lift Activity 2- Moves 4 extremities sustained head lift Circulation 2- SBP +/= 20 points of pre-anesthetic level Circulation 2- SBP +/= 20 points of pre-anesthetic level Consciousness 2- Awake and alert oriented x 3 Consciousness 2- Awake and alert oriented x 3 O2 Saturation 2- Able to maintain O2 satruation of 92% on room air O2 Saturation 2- Able to maintain O2 satruation of 92% on room air Respiratory 2- Able to deep breathe and cough well Respiratory 2- Able to deep breathe and cough well Total Score 10 Total Score 10 Contrast Agent: Isovue Diagnostic Contrast: 122 ml Total Contrast: 122 ml Fluoro Dose: 388 mGy Activated Clotting Time Time Seconds to Clot 10:42 AM 259 Procedure Log Time Note Enter By 10:00 AM CathStat 10:01 AM Pt arrived to veterinary laboratory diagnostician 2 at 10:01 [email or web address] 10:01 AM Mohamud Millan RT (R) Position: Monitor Time in: 10:2 10:02 AM Charmaine Millan RT (R) Position: Scrub Time in: 10:[email or web address] 10:02 AM Noemy Byrne RN Position: Managed Care Provider Time in: 10:2 10:02 AM Elisabet Mccormick RN Position: Managed Care Provider Time in: 10:[email or web address] 10:02 AM Patient charges- Angio tray pack, Navilyst 3mm J, Pulse Oximetry and ACIST tubing and transducer [email or web address] 10:02 AM Case Delayed No [email or web address] 10:02 AM Time: 10:02 Patient comfortable and pain free: Yes [email or web address] 10:02 AM Time: 10:02LOC: 5 = Fully awake and oriented or at pre-proc level [email or web address] 10:02 AM Physician arrived 10: [email or web address] 10:02 AM Migue and dayday completed [email or web address] 10:02 AM Sign in performed according to hospital policy. [email or web address] 10:03 AM Procedure start 10:02 [email or web address] 10:03 AM ASA Class CLASS II- Mild systemic disease (i.e. well-controlled diabetes, hypertension, asthma, cigarette smoking) [email or web address] 10:05 AM Vitals capture started with the following parameters, Patient=Adult, Interval=5 min, Initial Sktrgbgd=050 mmHg, Deflation Rate=5 mmHg, Cuff placed on Right Arm 10:05 AM Recorded ECG: HR=75 Condition=Condition 1 10:06 AM HR=73 bpm, JJUH=286/74 mmhg, SpO2=97.0 %, Resp=15 B/min 10:06 AM Time: 10:06 Oxygen on at 2 L/min per nasal cannula by Elisabet Mccormick RN [place] [id number] 10:07 AM Time: 10:07 Versed 2 mg Intravenous Given by Noemy Byrne RN [email or web address] 10:07 AM Time: 10: Fentanyl 50 mcg Intravenous Given by Noemy Byrne RN [email or web address] 10:07 AM Hair removed from procedure site in procedure lab using clippers. Right wrist prepped with Chloraprep by Charmaine Millan RT (R), safety strap applied then patient was draped. Skin intact. [email or web address] 10:08 AM Hair removed from procedure site in procedure lab using clippers. Right groin prepped with Chloraprep by Charmaine Millan RT (R), safety strap applied then patient was draped. Skin intact. [email or web address] 10:08 AM Clinical Presentation: Unstable angina [email or web address] 10:11 AM HR=71 bpm, HNZP=755/75 mmhg, SpO2=96.0 %, Resp=23 B/min 10:14 AM Pressure channel 1 zeroed. 10:16 AM HR=70 bpm, IBKI=573/71 mmhg, SpO2=96.0 %, Resp=22 B/min 10:16 AM Pressure channel 1 zeroed. 10:17 AM Time: 10:02LOC: 4 = Oriented but drowsy [email or web address] 10:17 AM Time: 10:02 Patient comfortable and pain free: Yes [email or web address] 10:21 AM HR=70 bpm, UZWI=947/72 mmhg, SpO2=96.0 %, Resp=14 B/min 10:25 AM Time out performed according to hospital policy [email or web address] 10:25 AM Time: 10:25 0.5 ml Lidocaine 2% to right radial Subcutaneous Given by Lyle Roblero MD, [facility] 10:26 AM HR=71 bpm, JHJH=273/72 mmhg, SpO2=97.0 %, Resp=17 B/min 10:26 AM Access obtained by percutaneous puncture. 6Fr 10cm Terumo Glidesheath sheath placed in right Radial artery. [id number] [email or web address] 10: AM 0.035 260cm Navilyst 3mmJ wire [id number] [email or web address] 10: AM Time: : Versed 2 mg Intravenous Given by Elisabet Mccormick RN [place] [id number] 10: AM Time: : Fentanyl 25 mcg Intravenous Given by Elisabet Mccormick RN [place] [id number] : AM Time: : Patient given 4,000 units Heparin, 200 mcg Nitroglycerin, and 2.5 mg Verapamil Intraarterial by Lyle Roblero MD, [facility]. This is given to reduce risk of vessel spasm and thrombosis. [email or web address] 10:27 AM 5Fr TIG catheter inserted over the wire [facility] [email or web address] 10:28 AM LCA angiography performed in multiple views. [email or web address] 10:28 AM Recorded Pressure: Ao, HR=73, Condition=Condition 1 (Aorta) Ao 154/51/87 10:29 AM Coronary Dominance: Left [email or web address] 10:29 AM Lesion found in Mid LAD. Pre Stenosis: 50 Pre TOMASZ Flow: [email or web address] 10:29 AM Mid/Distal Left Anterior Descending Coronary Artery and diagonal branches with 50% stenosis. If graft is supplying this area, 0 % stenosis [email or web address] 10:29 AM Lesion found in Mid Circumflex. Pre Stenosis: 70 Pre TOMASZ Flow: [email or web address] 10:30 AM Circumflex, Obtuse Marginal, Left Posterior Descending, and Left Posterolateral Coronary Arteries with 70 % stenosis. If graft is supplying this area, 0 % stenosis [email or web address] 10:30 AM Lesion found in LMCA. Pre Stenosis: 30 Pre TOMASZ Flow: [email or web address] 10:30 AM Left Main Coronary Artery with 30% stenosis [email or web address] 10:30 AM Pressure channel 1 zero failed. 10:30 AM Pressure channel 1 zero failed. 10:30 AM Pressure channel 1 zeroed. 10:31 AM Catheter selectively placed in left ventricle [email or web address] 10:31 AM Recorded Pressure: LV, OK=115, Condition=Condition 1 (Left Ventricle) LV 116/16/24 10:31 AM HR=80 bpm, LMDF=591/66 mmhg, SpO2=95.0 %, Resp=18 B/min 10:31 AM Bolus angiogram of left Ventricle complete: 10 ml/sec for a total of 20 mls [email or web address] 10:31 AM Recorded Pressure: LV, Ao, QU=834, Condition=Condition 1 (Left Ventricle) LV 99/97/93, (Aorta) Ao 108/20/62 10:31 AM Recorded Pressure: Ao, HR=88, Condition=Condition 1 (Aorta) Ao 128/68/95 10:32 AM RCA angiography performed in multiple views. [email or web address] 10:32 AM Physician reviewing films [email or web address] 10:32 AM Time: 10:17 Patient comfortable and pain free: Yes [email or web address] 10:32 AM Time: 10:17LOC: 4 = Oriented but drowsy [email or web address] 10:34 AM LCA angiography performed in multiple views. [email or web address] 10:35 AM Catheter removed [email or web address] 10:35 AM Inflation device was opened. [email or web address] 10:36 AM HR=76 bpm, ERUW=382/61 mmhg, SpO2=94.0 %, Resp=16 B/min 10:36 AM 6Fr CLS 3.0 Runway guide catheter was used to cannulate the PCI vessel successfully. reused? No [email or web address] 10:36 AM .014 Sh[place]an 190cm guide wire across target lesion- successful. reused? No [email or web address] 10:37 AM Recorded Pressure: Ao, HR=75, Condition=Condition 1 (Aorta) Ao 111/48/74 10:38 AM ACT drawn [email or web address] 10:39 AM Time: 10:39 Nitroglycerin 200 mcg Intracoronary Given by Lyle Roblero MD [email or web address] 10:40 AM Asist FFR Catheter advanced to target lesion. [email or web address] 10:41 AM HR=73 bpm, NGMK=039/61 mmhg, SpO2=94.0 %, Resp=15 B/min 10:42 AM Time: 10:41 Adenosine 714 ml/hr administered Intravenous by elisabet mccormick rn [email or web address] 10:42 AM At 10:42 the ACT was 259 seconds. [email or web address] 10:43 AM Recorded Pressure: Ao, HR=70, Condition=Condition 1 (Aorta) Ao 117/70/89 10:43 AM adenosine dc'd anny dial rn [email or web address] 10:46 AM Flow Wire/Catheter removed intact [email or web address] 10:46 AM HR=72 bpm, RDQD=435/54 mmhg, SpO2=94.0 %, Resp=15 B/min 10:46 AM 2.5mm x 16mm Synergy drug-eluting stent across target lesion- successful Lot #[id number] [email or web address] 10:47 AM Time: 10:47 Heparin 2000 units Intravenous Given by Elisabet Mccormick RN [email or web address] 10:48 AM Time: 10:32LOC: 4 = Oriented but drowsy [email or web address] 10:48 AM Time: 10:32 Patient comfortable and pain free: Yes [email or web address] 10:49 AM Stent deployed @ 14 js for 27 seconds [email or web address] 10:50 AM Stent delivery system removed intact. [email or web address] 10:50 AM Guide wire removed intact. [email or web address] 10:50 AM Guide catheter removed intact. [email or web address] 10:51 AM HR=75 bpm, FBNA=992/60 mmhg, SpO2=95.0 %, Resp=14 B/min 10:51 AM Time: 10:51 Aggrastat Bolus: 42 ml Intravenous Given by Elisabet Mccormick RN Candelario pump [email or web address] 10:51 AM Time: 10:51 Aggrastat 12.5mg/250ml 15 ml Intravenous Given by Elisabet Mccormick RN Candelario pump [email or web address] 10:52 AM Procedure completed at 10:52 [email or web address] 10:52 AM Sign out completed: Radiation Dose 387.73 mGy Fluoro Time: 5.7 Isovue 370 - 200ml contrast 122 ml given by Lyle Roblero MD, FACC. Complications: NoneCardiac Rehab Consult needed: YesConfirmed administered medications: Yes [email or web address] 10:52 AM Isovue 370 - 200ml,1 Bottle(s) used. [email or web address] 10:53 AM Arterial sheath pulled, Vasc Band closure device used and was Successful S/N. [email or web address] 10:53 AM 10 ml air in Vasc Band. [email or web address] 10:53 AM Estimated Blood Loss: less than 20cc [email or web address] 10:53 AM Post ECG NSR [email or web address] 10:53 AM Post Blood Pressure 118/60 [email or web address] 10:53 AM Information taught Cardiac Cath, PCI, and Vasc Band [email or web address] 10:54 AM Education needs Procedure, Plan of Care, and Disease Process [email or web address] 10:54 AM Learning barriers :Sedated [email or web address] 10:54 AM Education Methods Verbal [email or web address] 10:54 AM Education evaluation Needs further instruction [email or web address] 10:54 AM Site status No bleeding/hematoma - Rt Wrist as reported by Charmaine Millan RT (R) at 10:54 [email or web address] 10:54 AM Delay to floor No [email or web address] 10:54 AM No Family [email or web address] 10:55 AM Vitals capture stopped. 10:55 AM Complications: None [email or web address] 10:55 AM Fluoro Time: 5.7 [email or web address] 10:56 AM Isovue 370 - 200ml contrast 122 ml given by Lyle Roblero MD, FACC. [email or web address] 10:56 AM Radiation Dose 387.73 mGy [email or web address] 10:59 AM Patient out of room: 10:59 [email or web address] 10:59 AM 2cc air removed from vasc band in lab, charmaine millan [email or web address] 11:00 AM Time: 11:00 Plavix 600 mg Orally Given by Elisabet Mccormick RN [email or web address] 11:01 AM Report given to nataly NAVARRO Pt taken to ICU Room #7. 11:00 [email or web address] 11:02 AM 2cc air added [email or web address] 11:03 AM Time: 10:48 Patient comfortable and pain free: Yes [email or web address] 11:03 AM Time: 10:48LOC: 5 = Fully awake and oriented or at pre-proc level [email or web address] 11:03 AM 2cc air added monty robles [email or web address] 11:04 AM 11:04 Post Pulses Bilateral DP & PT 2+ [email or web address] Complications Complication None None Hemodynamics Pressures Site Systolic/A Wave Diastolic/V Wave Mean AO 154 51 87 LV 116 16 24 LV 99 97 93 AO 108 20 62 AO 128 68 95 AO 111 48 74 AO 117 70 89 Post Procedure Information Blood Pressure: 118/60 mmHg Rhythm: NSR Post procedural instructions were given Closure Device Time Device Success/Fail 04/09/2017 10:53:00 AM Mechanical Compression Successful Site Checks Time Location Status Staff Sheath In? Note 10:54 AM Rt Wrist No bleeding/hematoma Charmaine Millan (R) Pulses Time Site Pre-Procedure Post-Procedure Note 04/09/2017 8:43:00 AM Bilateral DP & PT 2+ 11:04:00 AM Bilateral DP & PT 2+ Updated by Mohamud ROBLES (R) on 04/09/2017 11:04:53 AM RT [place] electronically signed on 04/09/2017 11:05:17 AM with status of Final
[2017-04-09] MEDS: Nicotine 21 MG PATCH.TD24 TD SCH (12:04)
[2017-04-09] MEDS ORDERED: Adenosine 90 MG/30 ML MLS IV ONE (12:09)
[2017-04-09] MEDS: Gabapentin 300 MG CAPSULE PO SCH (21:50)
[2017-04-09] MEDS: Insulin DETEMIR 100 UNIT/ML X5UNITS SQ SCH (21:59)
[2017-04-10 04:07] LABS: Basophils % 0.6 %; Eosinophils # 0.2 K/mcL (0.0-0.6); Eosinophils % 2.4 %; Hematocrit 36.9 % (35.3-44.9); Hemoglobin 12.1 g/dL (11.5-15.4); Immature Granulocytes % 0.1 % (0-4); Lymphocytes # 2.7 K/mcL (0.6-4.6); Lymphocytes % 40.1 %; Mean Corpuscular HGB Conc 32.8 g/dL (31.6-35.5); Mean Corpuscular Hemoglobin 28.9 pg (28.0-33.3); Mean Corpuscular Volume 88.3 fL (83.0-100.0); Mean Platelet Volume 10.2 fL (9.4-12.4); Monocytes # 0.4 K/mcL (0.0-1.3); Monocytes % 6.4 %; Neutrophils # 3.4 K/mcL (1.6-8.9); Platelet Count 209 K/mcL (140-400); Red Blood Count 4.18 M/mcL (3.82-4.97); Red Cell Distribution Width 13.7 % (11.5-14.5); Segmented Neutrophils % 50.4 %
[2017-04-10 04:29] LABS: BUN/Creatinine Ratio 13 (6-26); Blood Urea Nitrogen 12 mg/dL (6-20); Calcium 9.7 mg/dL (8.6-10.3); Carbon Dioxide 25 mEq/L (23-29); Chloride 106 mEq/L (98-107); Glucose 135 mg/dL (70-105); Osmolality,Calculated 286 (280-300); Potassium 3.9 mEq/L (3.5-5.1); Sodium 137 mEq/L (136-145); eGFR For African Americans > 60 (> 60); eGFR For Non-African Americans > 60 (> 60)
[2017-04-10] MEDS: *HR* Heparin 5,000 UNIT/ML VIAL SQ SCH (05:35)
[2017-04-10 07:08] VITALS: BP 128/73
[2017-04-10] MEDS: Insulin LISPRO 300 UNITS/3 ML VIAL SQ SCH (08:45)
[2017-04-10] MEDS: Nicotine 21 MG PATCH.TD24 TD SCH (08:47)
[2017-04-10] MEDS: Aspirin 81 MG TAB.CHEW PO SCH (08:48)
--- NOTE | 2017-04-10 10:04 | Discharge Summary ---
Date of Encounter: 04/10/17 Time of Encounter: 10:02 - Discharge Diagnosis (1) Unstable angina Priority: Primary Status: Acute (2) Diabetes Priority: Secondary Status: Chronic Qualifiers: Diabetes mellitus type: type 2 Diabetes mellitus complication status: with circulatory complication Diabetes mellitus complication detail: with other circulatory complications Diabetes mellitus usp insulin use: with intermediate frame tender use Qualified Code(s): E11.59 - Type 2 diabetes mellitus with other circulatory complications; Z79.4 - senior care (current) use of insulin (3) Hypertension Priority: Secondary Status: Chronic Qualifiers: Hypertension type: essential hypertension Qualified Code(s): I10 - Essential (primary) hypertension (4) Tobacco abuse Priority: Secondary Status: Chronic (5) Syncope Priority: Secondary Status: Acute Qualifiers: Syncope type: vasovagal syncope Qualified Code(s): R55 - Syncope and collapse (6) Hyperlipidemia Priority: Secondary Status: Chronic Qualifiers: Hyperlipidemia type: mixed hyperlipidemia Qualified Code(s): E78.2 - Mixed hyperlipidemia (7) Chronic back pain Priority: Secondary Status: Chronic Qualifiers: Back pain location: low back pain Back pain laterality: bilateral Sciatica presence: with sciatica Sciatica laterality: bilateral sciatica Qualified Code(s): M54.42 - Lumbago with sciatica, left side; M54.41 - Lumbago with sciatica, right side; M54.41 - Lumbago with sciatica, right side; G89.29 - Other chronic pain; G89.29 - Other chronic pain - Discharge Medications Prescriptions: Clopidogrel [Plavix] 75 mg PO DAILY #30 tablet Nicotine Patch [Nicoderm] 21 mg TD DAILY #30 patch.td24 Home Medications: Gabapentin [Neurontin] 900 mg PO HS 07/17/15 [History] Insulin ASPART [Novolog Flexpen] 0 unit SQ TIDWM 07/17/15 [History] Insulin Glargine,Hum.rec.anlog [Lantus Solostar] 50 unit SQ HS 07/17/15 [History ] Losartan Potassium [Cozaar] 50 mg PO DAILY 07/17/15 [History] Metoprolol [Lopressor] 25 mg PO BID 07/17/15 [History] Paroxetine HCl [Paxil Cr] 20 mg PO DAILY 07/17/15 [History] Rosuvastatin [Crestor] 20 mg PO DAILY 07/17/15 [History] Tizanidine HCl [Zanaflex] 4 mg PO TID 07/17/15 [History] Aspirin Enteric Coated [Aspirin EC] 81 mg PO DAILY 09/14/15 [History] Diclofenac Sodium [Voltaren] 1 appl TP QID 09/14/15 [History] Albuterol Sulfate [Albuterol Inhaler] 2 puff IH QID #1 inhaler 02/06/17 [Rx] Ergocalciferol (VITAMIN D2) [Vitamin D] 400 unit PO DAILY 02/06/17 [History] Clopidogrel [Plavix] 75 mg PO DAILY #30 tablet 04/10/17 [Rx] Metformin HCl [Glucophage] 1,000 mg PO BID #0 04/10/17 [Rx] Nicotine Patch [Nicoderm] 21 mg TD DAILY #30 patch.td24 04/10/17 [Rx] Allergies/Adverse Reactions: 3 Allergy/AdvReac Type Severity Reaction Status Date / Time aspirin Allergy Mild See Verified 04/08/17 14:02 Comments Penicillins [PCN] Allergy Rash Verified 04/08/17 11:08 duloxetine [From Cymbalta] AdvReac Headache Verified 04/08/17 11:08 Procedures/tests Complete & Pending: Procedures Performed prior 72 hours Category Date Time Status CL Cardiac Catheterization [CL] Routine Launch Operator 04/09/17 08:00 Ordered EV echocardiogram Routine Y 04/08/17 12:41 Completed Date of admission: 04/08/17 12:08 Primary care physician: Josr Patel MD Consults: 04/08/17 12:41 Consult to Cardiology [CONS] Routine Comment: Consulting Provider: Cardiology [place] Reason for Consult: near syncope EKG changes Call Completed: Yes Discharging clinician: Jos Brown Anticipated date of discharge: 04/10/17 - Patient Status Disposition: Home, Self-Care Condition: Good - Discharge Instructions Follow Up With: Josr Patel MD [Primary Care Provider] - - Diet and Activity Activity: increase activity as tolerated, other (Restrictions as per cardiology) Diet: diabetic diet, low fat, low cholesterol Hospital course: Ms. Weir is a 56 year old female with hx of HTN and DM presented to ED with syncopal episode. She was evaluated and placed in observation at that time. Ms Weir was placed in observation for syncope. She was evaluated by cardiology and due to risk factors she was taken to pathology laboratory aide on 04/09. DANI was placed in circumflex which she tolerated well. She was also placed on nicotine patch as well. On 04/10 she was feeling well. She was tolerating medications. She requested nicotine patch at discharge. She is afebrile and ready for discharge home. Time spent discussing smoking cessation with patient: more than 10 minutes - Time Spent with Patient Total time spent providing and/or coordinating discharge services: 40min - Constitutional Vitals: Temp Pulse Resp BP Pulse Ox 98.3 F 79 18 128/73 96 04/10/17 07:01 04/10/17 07:01 04/10/17 07:01 04/10/17 07:01 04/10/17 07:01 General appearance: Present: A&O X 3, pleasant, answers questions appropriately - Head Head exam: Present: normocephalic - Eye Eye exam: Present: EOMI, conjuntiva pink - ENT ENT exam: Present: mucous membranes dry - Respiratory Respiratory exam: Present: CTAB. Absent: rales, rhonchi, wheezes - Cardiovascular Cardiovascular exam: Present: RRR. Absent: tachycardia - GI/Abdominal GI/Abdominal exam: Present: soft. Absent: tenderness - Extremities Exam Extremities exam: Present: warm. Absent: tenderness - Neurological Exam Neurological exam: Present: alert, oriented X3, no focal deficits - Skin Skin exam: Present: dry, warm. Absent: rash
--- NOTE | 2017-04-10 10:13 | Cardiology Progress Note ---
Date of Encounter: 04/10/17 Time of Encounter: 10:11 Assessment and Plan (1) CAD (coronary artery disease) Current Visit: Yes Status: Acute S/P C yesterday for unstable angina. DANI to mLCx. 30% LMCA, 40% mLAD lesion. Final cath report is pending. DAPT (ASA and Plavix) uninterrupted x 1 year. Pt verbalizes understanding. Continue statin and BB. Right radial access site healing well. No bleeding, hematoma or ecchymosis noted. Echo EF preserved, no significant valvular dysfunction. Pt chest pain free. Labs and vitals stable. Cardiology signing off. Reconsult PRN. Will coordinate outpt follow-up in 2-3 weeks. Qualifiers: Coronary Disease-Associated Artery/Lesion type: [place] artery [place] vs. transplanted heart: [place] heart Associated angina: with unstable angina Qualified Code(s): I25.110 - Atherosclerotic heart disease of [place] coronary artery with unstable angina pectoris (2) Syncope Current Visit: Yes Status: Acute Suspect orthostatic in etiology. Positive orthostatic vitals. Recommend staying hydrated and adding salt to diet. Change positions slowly. Echo preserved EF, no significant valvular dysfunction. Qualifiers: Syncope type: vasovagal syncope Qualified Code(s): R55 - Syncope and collapse (3) Tobacco abuse Current Visit: Yes Status: Chronic Smoking cessation counseling provided. 0.5 ppd/day x40 years. (4) Unstable angina Current Visit: Yes Status: Acute Presented with intermittent chest pressure/heaviness for the past 1+ year. Inferolateral ST/T wave changes noted per ECG. Initial troponin negative. Troponins negative x 4. Recent negative stress. S/P LHC yesterday with DANI to mLCx. Chest pain now resolved. Echo EF preserved. Details as above. (5) Hyperlipidemia Current Visit: Yes Status: Chronic Continue high-intensity statin. Triglycerides 564, total cholesterol 238, HDL 26. Recommend rechecking as outpt. Qualifiers: Hyperlipidemia type: mixed hyperlipidemia Qualified Code(s): E78.2 - Mixed hyperlipidemia Discussion w patient/family: The assessment and plan as outlined above was discussed with the patient and/or family members who expressed understanding and agreement. All questions were answered. Thank you for involving us in the care of your patient. Please call with any questions. I will discuss all the above with Dr. Lo and make changes as necessary. Subjective Principal diagnosis: Unstable angina Interval history: S/P LHC yesterday for unstable angina. Received DANI to mLCx. Denies chest pain or dyspnea overnight. Denies dizziness or lightheadedness. Labs and vitals stable. Echo EF 60-65%, mild TR. Objective Vital Signs, Last 4 Hours Temp Pulse Resp BP Pulse Ox 04/10/17 07:01 98.3 F 79 18 128/73 96 Vital Signs Temp Pulse Resp BP Pulse Ox 04/10/17 07:01 98.3 F 79 18 128/73 96 04/10/17 03:38 97.9 F 80 18 124/67 95 04/10/17 00:15 98.5 F 82 18 145/71 96 04/09/17 19:57 98.7 F 76 18 146/73 96 04/09/17 17:48 97.5 F L 70 18 138/80 96 04/09/17 16:00 75 16 148/64 95 04/09/17 14:00 82 16 134/70 94 04/09/17 13:35 74 16 147/73 97 04/09/17 13:20 83 16 143/76 99 04/09/17 13:05 66 16 133/68 97 04/09/17 12:50 67 16 138/68 98 04/09/17 12:30 82 16 147/69 98 04/09/17 12:00 97.9 F 64 16 139/70 96 Intake and Output 04/09/17 04/10/17 04/10/17 23:59 07:59 15:59 Intake Total 700 / 700 Balance 700 / 700 Intake: IV Fluids 700 / 700 0.9 % Sodium Chloride 1,000 ML 700 / 700 @ 75 mls/hr IVC .[id number] [facility] Rx #:[id number] Other: Stool Size Moderate Stool Consistency soft Stool Characteristics Normal for Patient # Voids 2 4 # Bowel Movements 1 Blood Glucose* 121 137 General: Conversant, No Apparent Distress HEENT: Atraumatic, Normocephaly, Mucus Membranes Moist Neck: No JVD, Normal carotid pulses Cardiac: Reg Rate and Rhythm, Normal S1 and S2, No Murmur Lungs: Normal Breath Sounds, No Wheeze, Rales, Rhonchi Neuro: Alert and responsive, No focal deficits noted Abdomen: Soft, Non-Tender Skin: Other (right radial access site healing well. No bleeding, hematoma or ecchymosis noted.) Musculoskeletal: No Chest Wall Tenderness Extremities: No Clubbing, No Cyanosis, No Edema, Normal Pulses Results 04/10/17 03:52 04/10/17 03:52 Lab Results 04/10/17 04/10/17 03:52 03:52 WBC 6.7 Hgb 12.1 Hct 36.9 Plt Count 209 Sodium 137 Potassium 3.9 Chloride 106 Carbon Dioxide 25 BUN 12 Creatinine 0.93 Glucose 135 H Calcium 9.7 Short CBC 04/10/17 Range/Units 03:52 WBC 6.7 (4.3-11.1) K/mcL Hgb 12.1 (11.5-15.4) g/dL Hct 36.9 (35.3-44.9) % Plt Count 209 (140-400) K/mcL Neutrophils # 3.4 (1.6-8.9) K/mcL BMP 04/10/17 Range/Units 03:52 Sodium 137 (136-145) mEq/L Potassium 3.9 (3.5-5.1) mEq/L Chloride 106 (98-107) mEq/L Carbon Dioxide 25 (23-29) mEq/L BUN 12 (6-20) mg/dL Creatinine 0.93 (0.60-1.20) mg/dL Glucose 135 H (70-105) mg/dL Calcium 9.7 (8.6-10.3) mg/dL Impressions Echocardiogram 04/08/17 12:41 Impressions: LVEF 60-65%. Normal left ventricular diastolic function. Normal right ventricular structure and function. Mild tricuspid regurgitation. No pulmonary hypertension. Left Ventricular Wall Motion: Rest Echo Findings All wall segments showed normal motion. Findings: Study Quality * Technically adequate exam. ECG Findings * Normal sinus rhythm. Left Ventricle * LVEF 60-65%. * Normal LV chamber size, wall thickness and function. * Normal left ventricular diastolic function. Right Ventricle * Normal right ventricular structure and function. Left Atrium * Normal left atrial size. Right Atrium * Normal right atrial size. Aortic Valve * No aortic regurgitation. * Trileaflet aortic valve. * No aortic stenosis. Mitral Valve * Normal mitral valve structure. * No mitral regurgitation. * No mitral stenosis. Tricuspid Valve * Normal tricuspid valve structure. * Mild tricuspid regurgitation. * Estimated RA pressure is 3 mmHg. Pulmonic Valve * Pulmonic valve is not well visualized. * No pulmonic stenosis. * No pulmonic regurgitation. Pulmonary Artery * Pulmonary artery not well visualized. Aorta * Normally sized aortic root. * Ascending aorta is not well visualized. Pericardium * There is no pericardial effusion present. Interatrial Septum * No evidence of PFO by color Doppler. IVC * Normal IVC dimensions and inspiratory collapse. Active Medications Acetaminophen (Tylenol) 650 mg PO Q6HR PRN PRN Reason: Mild Pain (1-3) Stop: 10/08/17 12:42 Albuterol/Ipratropium (Duoneb) 3 ml IH [id number] PRN; Protocol PRN Reason: Shortness Of Breath/Wheezing Stop: 10/08/17 13:44 Aspirin (Aspirin) 81 mg PO DAILY [facility] Stop: 10/09/17 09:01 Last Admin: 04/10/17 08:48 Dose: 81 mg Clopidogrel Bisulfate (Plavix) 75 mg PO DAILY [facility] Stop: 10/10/17 09:01 Last Admin: 04/10/17 08:48 Dose: 75 mg Dextrose/Water (Dextrose 50% (Syg)) 25 ml IVP AD PRN PRN Reason: Hypoglycemia Stop: 10/08/17 12:42 Gabapentin (Neurontin) 900 mg PO HS [facility] Stop: 10/08/17 21:01 Last Admin: 04/09/17 21:50 Dose: 900 mg Glucagon (Glucagen) 1 mg IM ONCE PRN PRN Reason: Hypoglycemia Stop: 10/08/17 12:42 Glucose (Gluctose) 15 gm PO ONCE PRN PRN Reason: Hypoglycemia Stop: 10/08/17 12:42 Glucose (Gluctose) 30 gm PO ONCE PRN PRN Reason: Hypoglycemia Stop: 10/08/17 12:42 Heparin Sodium (Porcine) (Heparin) 5,000 unit SQ Q8HCO BRIAN Stop: 10/08/17 14:01 Last Admin: 04/10/17 05:35 Dose: 5,000 unit Dextrose (Dextrose 5%) 1,000 mls @ 100 mls/hr IVC .Q10H PRN PRN Reason: HYPOGLYCEMIA Stop: 10/08/17 12:42 Insulin Detemir (Levemir) 50 unit SQ HS [facility] Stop: 10/08/17 21:01 Last Admin: 04/09/17 21:59 Dose: 50 unit Insulin Human Lispro (Humalog) 0 units SQ HS BRIAN PRN Reason: Protocol Stop: 10/08/17 21:01 Last Admin: 04/09/17 21:14 Dose: Not Given Insulin Human Lispro (Humalog) 0 units SQ TIDAC BRIAN PRN Reason: Protocol Stop: 10/08/17 16:31 Last Admin: 04/10/17 08:45 Dose: Not Given Metoprolol Tartrate (Lopressor) 25 mg PO BID [facility] Stop: 10/08/17 21:01 Last Admin: 04/10/17 08:48 Dose: 25 mg Naloxone HCl (Narcan) 0.4 mg IVP Q2MIN PRN PRN Reason: Opioid Reversal Stop: 10/08/17 12:42 Nicotine (Nicoderm) 21 mg TD DAILY [facility] PRN Reason: Protocol Stop: 10/08/17 13:46 Last Admin: 04/10/17 08:47 Dose: 21 mg Omeprazole (Prilosec) 40 mg PO DAILY@0630 [facility] PRN Reason: Protocol Stop: 10/09/17 06:31 Last Admin: 04/10/17 05:35 Dose: 40 mg Ondansetron HCl (Zofran) 4 mg IVP Q8HR PRN PRN Reason: Nausea And Vomiting Stop: 10/08/17 12:42 Oxycodone HCl (Roxicodone) 5 mg PO Q6HR PRN PRN Reason: Moderate Pain (4-6) Stop: 10/08/17 12:42 Last Admin: 04/08/17 20:32 Dose: 5 mg Paroxetine HCl (Paxil) 20 mg PO DAILY [facility] Stop: 10/09/17 09:01 Last Admin: 04/10/17 08:47 Dose: 20 mg Rosuvastatin Calcium (Crestor) 20 mg PO HS [facility] Stop: 10/09/17 21:01 Last Admin: 04/09/17 21:50 Dose: 20 mg - Imaging and Cardiology Echo: report reviewed Cardiac cath: report reviewed - EKG Interpretation EKG results cardiology: other (12 hr tele AVG HR 79, SR, no significant pauses or arrhythmias) Consult Discharge Plan - Plan Referrals: Josr Patel MD [Primary Care Provider] - Prescriptions: Clopidogrel [Plavix] 75 mg PO DAILY #30 tablet Nicotine Patch [Nicoderm] 21 mg TD DAILY #30 patch.[id number]
== END 2017-04-10 11:50 | disposition home or self-care (01) ==
LOC: ICNU 08:36 → EMEROO 08:36 → SUATTDRO 12:08 → ICNU 12:35 → 2ANU 04-09 17:42
PROVIDERS: ADMIT Internal Medicine; ATTEND Internal Medicine

== ENCOUNTER 2018-10-31 15:22 | Observation (INO) ==
[2018-10-31] MEDS ORDERED: Naloxone 0.4 MG/ML INJ IVP ONE (15:31)
[2018-10-31] MEDS ORDERED: Naloxone 0.4 MG/ML INJ ONE (15:34)
--- NOTE | 2018-10-31 15:44 | Emergency Department Note ---
Disposition Clinical Impression: Lactic acidosis, MICAH (acute kidney injury) Altered mental status Qualifiers: Altered mental status type: unspecified Qualified Code(s): R41.82 - Altered mental status, unspecified Disposition: Admitted As Inpatient Referrals: Josr Patel MD [Primary Care Provider] - Forms: ED Satisfaction Letter Time of Disposition: 18:14 Altered Mental Status HPI - General Chief Complaint: ED Altered Mental Status Stated Complaint: unresponsive? Time Seen by Provider: 10/31/18 15:29 Source: EMS Mode of arrival: EMS Limitations: altered mental status Nursing Notes Reviewed: Yes Vital Signs Reviewed: Yes - History of Present Illness HPI Narrative: 58F with last known well 2 days ago presents emergency department via EMS with altered mental status. Patient has had decreased mentation for the past 2 days per her daughter. Patient has had high blood sugars over the past several days as well with her highest being in the 500s. She has not been febrile and has not had a cough for EMS. She does not follow all commands but she does answer questions appropriately and is alert and oriented 3. Her blood sugar was 275 via EMS prior to arrival. She is also noted to have decreased breath sounds in the right lower lobe of her lung. - Related Data Home Medications Medication Instructions Recorded Confirmed Gabapentin [Neurontin] 900 mg PO TID 07/17/15 10/31/18 Insulin ASPART [Novolog Flexpen] 0 - 12 unit SQ TIDWM 07/17/15 10/31/18 Insulin Glargine,Hum.rec.anlog 50 unit SQ HS 07/17/15 10/31/18 [Lantus Solostar] Losartan Potassium [Cozaar] 50 mg PO DAILY 07/17/15 10/31/18 Tizanidine HCl [Zanaflex] 4 mg PO TID PRN 07/17/15 10/31/18 Aspirin Enteric Coated [Aspirin EC] 81 mg PO DAILY 09/14/15 10/31/18 Cholecalciferol (Vitamin D3) 5,000 unit PO DAILY 08/18/18 10/31/18 [Vitamin D3] Isosorbide MONOnitrate [Isosorbide 30 mg PO DAILY 08/18/18 10/31/18 Mononitrate ER] Metoprolol Succinate [Toprol Xl] 50 mg PO DAILY 08/18/18 10/31/18 PARoxetine HCl [Paroxetine HCl] 40 mg PO DAILY 08/18/18 10/31/18 Rosuvastatin Calcium 20 mg PO DAILY 08/18/18 10/31/18 Previous Rx's Medication Instructions Recorded Clopidogrel [Plavix] 75 mg PO DAILY #30 tablet 04/10/17 Metformin HCl [Glucophage] 1,000 mg PO BID #0 04/10/17 Allergies Allergy/AdvReac Type Severity Reaction Status Date / Time aspirin Allergy Mild See Verified 08/18/18 20:24 Comments Penicillins [PCN] Allergy Rash Verified 08/18/18 20:24 duloxetine [From Cymbalta] AdvReac Headache Verified 08/18/18 20:24 Review of Systems: As Per HPI Limitations: ROS unobtainable due to patients medical condition Past Medical History - Past Medical History Source: old records reviewed Medical history: Reports: diabetes, hyperlipidemia, hypertension, peripheral artery disease, other Surgical history: Reports: cancer surgery, cholecystectomy, hysterectomy Psychiatric history: Reports: anxiety, depression - Social History Smoking Status: Current every day smoker Smokeless Tobacco Status: No Alcohol use: Reports: none Drug use: Reports: none Physical Exam - General Limitations: altered mental status General appearance: obtunded - Head Head exam: atraumatic, normocephalic - Eye Eye exam: Present: normal appearance, PERRL, EOMI - ENT ENT exam: normal exam - Neck Neck exam: Present: normal inspection. Absent: tenderness, lymphadenopathy - Chest Chest inspection: Present: normal inspection. Absent: tenderness - Respiratory Respiratory exam: Present: normal lung sounds bilaterally. Absent: wheezes - Cardiovascular Cardiovascular exam: Present: regular rate, normal rhythm - Abdominal Exam Abdominal exam: Present: soft, Non-Tender. Absent: distention, guarding, rebound, rigidity - Extremities Exam Extremities exam: Present: normal inspection. Absent: tenderness, pedal edema - Neurological Exam Neurological exam: Present: oriented X3, other (slow to respond to questions but answers appropriately. Can follow some commands) - Skin Skin exam: Present: warm, dry, intact Course Vital Signs Temperature 98.6 F 10/31/18 15:24 Pulse Rate 74 10/31/18 15:24 Respiratory Rate 20 10/31/18 15:24 Blood Pressure 104/56 10/31/18 15:24 O2 Sat by Pulse Oximetry 97 10/31/18 15:24 Temperature 98.6 F 10/31/18 15:24 Pulse Rate 67 10/31/18 16:29 Respiratory Rate 17 10/31/18 16:29 Blood Pressure 90/56 10/31/18 16:29 O2 Sat by Pulse Oximetry 96 10/31/18 16:29 Oxygen Delivery Oxygen Delivery Room Air Altered Mental Status - MDM Narrative Medical decision making narrative: Patient presents in an unresponsive state. We will do an altered mental status workup and plan admission to the hospital following testing. 181 - patient's CAT scans were negative with the exception of possible cystitis. Patient's lactic acid is greatly elevated. Urine does not show signs of urinary tract infection. Lab work did not show any acute cause of the patient's unresponsiveness. Dr. Brown has except that the patient for admission to the hospital for further workup. - Medical Records Medical records reviewed: Yes I reviewed the patient's medical records. - Lab Data Lab results reviewed: Yes I reviewed the patient's lab results. Result diagrams: 10/31/18 15:40 10/31/18 15:40 Lab Results 10/31/18 10/31/18 10/31/18 Range/Units 15:40 15:40 15:40 WBC 11.3 H (4.3-11.1) K/mcL RBC 4.55 (3.82-4.97) M/mcL Hgb 13.7 (11.5-15.4) g/dL Hct 41.6 (35.3-44.9) % MCV 91.4 (83.0-100.0) fL MCH 30.1 (28.0-33.3) pg MCHC 32.9 (31.6-35.5) g/dL RDW 13.6 (11.5-14.5) % Plt Count 211 (140-400) K/mcL MPV 10.8 (9.4-12.4) fL Immature Gran % 0.5 (0-4) % Seg Neutrophils % 68.1 % Lymphocytes % 24.8 % Monocytes % 5.3 % Eosinophils % 0.9 % Basophils % 0.4 % Neutrophils # 7.7 (1.6-8.9) K/mcL Lymphocytes # 2.8 (0.6-4.6) K/mcL Monocytes # 0.6 (0.0-1.3) K/mcL Eosinophils # 0.1 (0.0-0.6) K/mcL Basophils # 0.0 (0.0-0.2) K/mcL PT 11.4 (9.4-12.1) Seconds INR 1.0 Sodium 135 L (136-145) mEq/L Potassium 3.9 (3.5-5.1) mEq/L Chloride 102 (98-107) mEq/L Carbon Dioxide 20 L (23-29) mEq/L BUN 14 (6-20) mg/dL Creatinine 1.25 H (0.60-1.20) mg/dL Est GFR ( Amer) 53 L (> 60) Est GFR (Non-Af Amer) 44 L (> 60) BUN/Creatinine Ratio 11 (6-26) Glucose 277 H (70-105) mg/dL Calculated Osmolality 290 (280-300) Lactic Acid (0.5-2.2) mmol/L Calcium 9.8 (8.6-10.3) mg/dL Total Bilirubin 0.4 (0.3-1.0) mg/dL Direct Bilirubin 0.1 (0.0-0.2) mg/dL Indirect Bilirubin 0.3 (0.0-1.2) mg/dL AST 19 (13-39) Units/L ALT 20 (7-52) Units/L Alkaline Phosphatase 108 H (34-104) Units/L Troponin I < 0.03 (< 0.04) ng/mL Serum Total Protein 7.2 (6.4-8.9) g/dL Albumin 4.2 (3.5-5.7) g/dL Globulin 3.0 (2.4-3.5) g/dL Albumin/Globulin Ratio 1.4 (1.1-2.2) TSH (0.340-5.600) mcIU/mL Urine Color (Yellow) Urine Clarity (Clear) Urine pH (5.0-8.0) pH Units Ur Specific Dodge (1.010-1.025) Urine Protein (Neg-Trace) mg/dL Urine Glucose (UA) (Normal) mg/dL Urine Ketones (Negative) mg/dL Urine Blood (Negative) Urine Nitrite (Negative) Urine Bilirubin (Negative) Urine Urobilinogen (Normal) mg/dL Ur Leukocyte Esterase (Negative) Ur Culture Indicated? (NO) Urine Opiates Screen (Jooqag=042) ng/mL Ur Buprenorphine Scrn (Cutoff=5) ng/mL Ur Barbiturates Screen (Gfihvb=076) ng/mL Ur Phencyclidine Scrn (Cutoff=25) ng/mL Ur Amphetamines Screen (Jlvrsh=5279) ng/mL U Benzodiazepines Scrn (Lobujx=816) ng/mL Urine Cocaine Screen (Cutoff= 300) ng/mL U Marijuana (THC) Screen (Cutoff = 50) ng/mL Ur Drug Screen Interp Ethyl Alcohol < 10 (Less than 10) mg/dL 10/31/18 10/31/18 10/31/18 Range/Units 15:40 15:40 16:34 WBC (4.3-11.1) K/mcL RBC (3.82-4.97) M/mcL Hgb (11.5-15.4) g/dL Hct (35.3-44.9) % MCV (83.0-100.0) fL MCH (28.0-33.3) pg MCHC (31.6-35.5) g/dL RDW (11.5-14.5) % Plt Count (140-400) K/mcL MPV (9.4-12.4) fL Immature Gran % (0-4) % Seg Neutrophils % % Lymphocytes % % Monocytes % % Eosinophils % % Basophils % % Neutrophils # (1.6-8.9) K/mcL Lymphocytes # (0.6-4.6) K/mcL Monocytes # (0.0-1.3) K/mcL Eosinophils # (0.0-0.6) K/mcL Basophils # (0.0-0.2) K/mcL PT (9.4-12.1) Seconds INR Sodium (136-145) mEq/L Potassium (3.5-5.1) mEq/L Chloride (98-107) mEq/L Carbon Dioxide (23-29) mEq/L BUN (6-20) mg/dL Creatinine (0.60-1.20) mg/dL Est GFR ( Amer) (> 60) Est GFR (Non-Af Amer) (> 60) BUN/Creatinine Ratio (6-26) Glucose (70-105) mg/dL Calculated Osmolality (280-300) Lactic Acid 3.5 H (0.5-2.2) mmol/L Calcium (8.6-10.3) mg/dL Total Bilirubin (0.3-1.0) mg/dL Direct Bilirubin (0.0-0.2) mg/dL Indirect Bilirubin (0.0-1.2) mg/dL AST (13-39) Units/L ALT (7-52) Units/L Alkaline Phosphatase (34-104) Units/L Troponin I (< 0.04) ng/mL Serum Total Protein (6.4-8.9) g/dL Albumin (3.5-5.7) g/dL Globulin (2.4-3.5) g/dL Albumin/Globulin Ratio (1.1-2.2) TSH 3.017 (0.340-5.600) mcIU/mL Urine Color Yellow (Yellow) Urine Clarity Clear (Clear) Urine pH 6.0 (5.0-8.0) pH Units Ur Specific Dodge 1.012 (1.010-1.025) Urine Protein Negative (Neg-Trace) mg/dL Urine Glucose (UA) 500 H (Normal) mg/dL Urine Ketones Negative (Negative) mg/dL Urine Blood Negative (Negative) Urine Nitrite Negative (Negative) Urine Bilirubin Negative (Negative) Urine Urobilinogen Normal (Normal) mg/dL Ur Leukocyte Esterase Negative (Negative) Ur Culture Indicated? NO (NO) Urine Opiates Screen (Qlccej=352) ng/mL Ur Buprenorphine Scrn (Cutoff=5) ng/mL Ur Barbiturates Screen (Drmhkq=585) ng/mL Ur Phencyclidine Scrn (Cutoff=25) ng/mL Ur Amphetamines Screen (Yzyxaw=3350) ng/mL U Benzodiazepines Scrn (Ajefao=850) ng/mL Urine Cocaine Screen (Cutoff= 300) ng/mL U Marijuana (THC) Screen (Cutoff = 50) ng/mL Ur Drug Screen Interp Ethyl Alcohol (Less than 10) mg/dL 10/31/18 Range/Units 16:34 WBC (4.3-11.1) K/mcL RBC (3.82-4.97) M/mcL Hgb (11.5-15.4) g/dL Hct (35.3-44.9) % MCV (83.0-100.0) fL MCH (28.0-33.3) pg MCHC (31.6-35.5) g/dL RDW (11.5-14.5) % Plt Count (140-400) K/mcL MPV (9.4-12.4) fL Immature Gran % (0-4) % Seg Neutrophils % % Lymphocytes % % Monocytes % % Eosinophils % % Basophils % % Neutrophils # (1.6-8.9) K/mcL Lymphocytes # (0.6-4.6) K/mcL Monocytes # (0.0-1.3) K/mcL Eosinophils # (0.0-0.6) K/mcL Basophils # (0.0-0.2) K/mcL PT (9.4-12.1) Seconds INR Sodium (136-145) mEq/L Potassium (3.5-5.1) mEq/L Chloride (98-107) mEq/L Carbon Dioxide (23-29) mEq/L BUN (6-20) mg/dL Creatinine (0.60-1.20) mg/dL Est GFR ( Amer) (> 60) Est GFR (Non-Af Amer) (> 60) BUN/Creatinine Ratio (6-26) Glucose (70-105) mg/dL Calculated Osmolality (280-300) Lactic Acid (0.5-2.2) mmol/L Calcium (8.6-10.3) mg/dL Total Bilirubin (0.3-1.0) mg/dL Direct Bilirubin (0.0-0.2) mg/dL Indirect Bilirubin (0.0-1.2) mg/dL AST (13-39) Units/L ALT (7-52) Units/L Alkaline Phosphatase (34-104) Units/L Troponin I (< 0.04) ng/mL Serum Total Protein (6.4-8.9) g/dL Albumin (3.5-5.7) g/dL Globulin (2.4-3.5) g/dL Albumin/Globulin Ratio (1.1-2.2) TSH (0.340-5.600) mcIU/mL Urine Color (Yellow) Urine Clarity (Clear) Urine pH (5.0-8.0) pH Units Ur Specific Dodge (1.010-1.025) Urine Protein (Neg-Trace) mg/dL Urine Glucose (UA) (Normal) mg/dL Urine Ketones (Negative) mg/dL Urine Blood (Negative) Urine Nitrite (Negative) Urine Bilirubin (Negative) Urine Urobilinogen (Normal) mg/dL Ur Leukocyte Esterase (Negative) Ur Culture Indicated? (NO) Urine Opiates Screen Negative (Pulsvr=291) ng/mL Ur Buprenorphine Scrn Negative (Cutoff=5) ng/mL Ur Barbiturates Screen Negative (Wbhwnf=783) ng/mL Ur Phencyclidine Scrn Negative (Cutoff=25) ng/mL Ur Amphetamines Screen Negative (Huyhbf=0825) ng/mL U Benzodiazepines Scrn Negative (Qneajn=039) ng/mL Urine Cocaine Screen Negative (Cutoff= 300) ng/mL U Marijuana (THC) Screen Negative (Cutoff = 50) ng/mL Ur Drug Screen Interp See Below Ethyl Alcohol (Less than 10) mg/dL - Radiology Data Radiology results reviewed: Yes I reviewed the patient's radiology results. - EKG Data EKG attestation: Yes I reviewed and interpreted this EKG. EKG results narrative: EKG obtained at 15:29 on 10/31/2018 Heart rate 74 bpm, MA interval 155, QRS duration 94, QT 374, QTC 415 Sinus rhythm without any ST segment elevations or depressions. There are T-wave inversions diffusely throughout the EKG, the most prominent being in the lateral and inferior leads. No other significant abnormalities. T-wave inversions are unchanged when compared to previous dated 04/08/2017. TPA Checklist - LKW: 3-4.5 hrs Add. Warnings/Precautions Patient/family understanding: The patient/family members have been counseled and understood the risk, benefit, and alternatives of treatment. Attestation Statement - Attestation Attestation: Patient was seen with resident physician. I reviewed the history, physical, assessment and plan, and agree with the findings. I also personally evaluated this patient and had [id number] time with this patient. 58-year-old female last known well proximally 2 days ago presents emergency Department with altered mental status. Patient has had a decreased mentation for the last 2 days per the daughter. She has had high blood sugars over the last several days highest being in the 500 apparently no fevers and has not had any other issues per EMS she does not follow all commands, but she was able to answer basic questions. Blood sugar per EMS was 275. Review of systems as above remainder negative. Physical exam vital signs were stable. Generally the patient appears tired. She is arousable but seems to doze off quickly. She also appears somewhat pale. ENT is otherwise unremarkable without signs traumatic injury. Heart regular rhythm and rate. Lungs clear. Abdomen soft nontender. Extremities unremarkable. Neurologically she is arousable she follows commands she answers questions. Cannot determine any specific deficiencies. Skin no rashes and psych unable to evaluate. ED course. We will do a full workup septic maddox and for other problems echo causes her altered mental state. It is unclear based on physical examination will be causing the issue. Patient will require hospitalization once workup is complete. Patient was found have a lactic acidosis mildly MICAH, and the altered mental status. There is no specific cause of the altered mental status that we were able to determine. I she will require further workup. We spoke with the hospitalist service agreed to accept the patient for admission. Agree with resident physician assessment and plan. Critical care time 35 minutes. ED procedures.I reviewed the patient's EKG as well as the resident physician interpretation and I agree with the findings.
[2018-10-31 16:04] LABS: Basophils % 0.4 %; Eosinophils # 0.1 K/mcL (0.0-0.6); Eosinophils % 0.9 %; Hematocrit 41.6 % (35.3-44.9); Hemoglobin 13.7 g/dL (11.5-15.4); Immature Granulocytes % 0.5 % (0-4); Lymphocytes # 2.8 K/mcL (0.6-4.6); Lymphocytes % 24.8 %; Mean Corpuscular HGB Conc 32.9 g/dL (31.6-35.5); Mean Corpuscular Hemoglobin 30.1 pg (28.0-33.3); Mean Corpuscular Volume 91.4 fL (83.0-100.0); Mean Platelet Volume 10.8 fL (9.4-12.4); Monocytes # 0.6 K/mcL (0.0-1.3); Monocytes % 5.3 %; Neutrophils # 7.7 K/mcL (1.6-8.9); Platelet Count 211 K/mcL (140-400); Red Blood Count 4.55 M/mcL (3.82-4.97); Red Cell Distribution Width 13.6 % (11.5-14.5); Segmented Neutrophils % 68.1 %; White Blood Count 11.3 K/mcL (4.3-11.1)
[2018-10-31 16:14] LABS: Prothrombin Time 11.4 Seconds (9.4-12.1)
[2018-10-31 16:16] LABS: Alanine Aminotransferase 20 Units/L (7-52); Albumin 4.2 g/dL (3.5-5.7); Albumin/Globulin Ratio 1.4 (1.1-2.2); Alkaline Phosphatase 108 Units/L (34-104); Aspartate Amino Transferase 19 Units/L (13-39); BUN/Creatinine Ratio 11 (6-26); Bilirubin,Direct 0.1 mg/dL (0.0-0.2); Bilirubin,Indirect 0.3 mg/dL (0.0-1.2); Bilirubin,Total 0.4 mg/dL (0.3-1.0); Blood Urea Nitrogen 14 mg/dL (6-20); Calcium 9.8 mg/dL (8.6-10.3); Carbon Dioxide 20 mEq/L (23-29); Chloride 102 mEq/L (98-107); Ethanol < 10 mg/dL (Less than 10); Glucose 277 mg/dL (70-105); Osmolality,Calculated 290 (280-300); Potassium 3.9 mEq/L (3.5-5.1); Sodium 135 mEq/L (136-145); Total Protein 7.2 g/dL (6.4-8.9); eGFR For African Americans 53 (> 60); eGFR For Non-African Americans 44 (> 60)
[2018-10-31 16:17] LABS: Troponin I < 0.03 ng/mL (< 0.04)
[2018-10-31 16:46] LABS: Bilirubin,Urine Negative (Negative); Blood,Urine Negative (Negative); Clarity,Urine Clear (Clear); Color,Urine Yellow (Yellow); Glucose,Urine (UA) 500 mg/dL (Normal); Ketones,Urine Negative (Negative); Leukocyte Esterase,Urine Negative (Negative); Nitrite,Urine Negative (Negative); Protein,Urine Negative (Neg-Trace); Specific Gravity,Urine 1.012 (1.010-1.025); Urobilinogen,Urine Normal (Normal)
[2018-10-31 16:47] LABS: Amphetamine Screen,Urine Negative ng/mL (Cutoff=1000); Barbiturate Screen,Urine Negative ng/mL (Cutoff=200)
[2018-10-31 16:48] LABS: Benzodiazepines Screen,Urine Negative ng/mL (Cutoff=300); Cannabinoid Screen,Urine Negative ng/mL (Cutoff = 50); Cocaine Screen,Urine Negative ng/mL (Cutoff= 300); Opiate Screen,Urine Negative ng/mL (Cutoff=300); Phencyclidine Screen,Urine Negative ng/mL (Cutoff=25)
[2018-10-31] MEDS ORDERED: 0.9 % Sodium Chloride 1,000 ML IVC ONE (16:52)
--- NOTE | 2018-10-31 17:19 | Internal Med History&Physical ---
<Valerie Stearns - Last Filed: 10/31/18 18:29> Date of Encounter: 10/31/18 Internal Medicine - H&P: HPI History of present illness: Ms. Weir is a 58 year old female Internal Medicine - H&P: Meds Gabapentin [Neurontin] 900 mg PO TID 07/17/15 [History] Insulin ASPART [Novolog Flexpen] 0 - 12 unit SQ TIDWM 07/17/15 [History] Insulin Glargine,Hum.rec.anlog [Lantus Solostar] 50 unit SQ HS 07/17/15 [History] Losartan Potassium [Cozaar] 50 mg PO DAILY 07/17/15 [History] Tizanidine HCl [Zanaflex] 4 mg PO TID PRN 07/17/15 [History] Aspirin Enteric Coated [Aspirin EC] 81 mg PO DAILY 09/14/15 [History] Clopidogrel [Plavix] 75 mg PO DAILY #30 tablet 04/10/17 [Rx] Metformin HCl [Glucophage] 1,000 mg PO BID #0 04/10/17 [Rx] Cholecalciferol (Vitamin D3) [Vitamin D3] 5,000 unit PO DAILY 08/18/18 [History] Isosorbide MONOnitrate [Isosorbide Mononitrate ER] 30 mg PO DAILY 08/18/18 [History] Metoprolol Succinate [Toprol Xl] 50 mg PO DAILY 08/18/18 [History] PARoxetine HCl [Paroxetine HCl] 40 mg PO DAILY 08/18/18 [History] Rosuvastatin Calcium 20 mg PO DAILY 08/18/18 [History] Allergy/AdvReac Type Severity Reaction Status Date / Time aspirin Allergy Mild See Verified 08/18/18 20:24 Comments Penicillins [PCN] Allergy Rash Verified 08/18/18 20:24 duloxetine [From Cymbalta] AdvReac Headache Verified 08/18/18 20:24 All Systems PM: A 10-system review of systems was performed and is negative for pertinent findings except as documented above in the HPI. - Constitutional Vitals: Temp Pulse Resp BP Pulse Ox 98.6 F 67 17 90/56 96 10/31/18 15:24 10/31/18 16:29 10/31/18 16:29 10/31/18 16:29 10/31/18 16:29 Internal Med - H&P Results - Labs CBC & Chem 7: 10/31/18 15:40 10/31/18 15:40 Labs: Short CBC 10/31/18 Range/Units 15:40 WBC 11.3 H (4.3-11.1) K/mcL Hgb 13.7 (11.5-15.4) g/dL Hct 41.6 (35.3-44.9) % Plt Count 211 (140-400) K/mcL Neutrophils # 7.7 (1.6-8.9) K/mcL BMP 10/31/18 15:40 Sodium 135 L Potassium 3.9 Chloride 102 Carbon Dioxide 20 L BUN 14 Creatinine 1.25 H Glucose 277 H Calcium 9.8 Cardiac Enzymes 10/31/18 Range/Units 15:40 Troponin I < 0.03 (< 0.04) ng/mL Liver Function 10/31/18 Range/Units 15:40 Total Bilirubin 0.4 (0.3-1.0) mg/dL Direct Bilirubin 0.1 (0.0-0.2) mg/dL AST 19 (13-39) Units/L ALT 20 (7-52) Units/L Alkaline Phosphatase 108 H (34-104) Units/L Albumin 4.2 (3.5-5.7) g/dL Urine 10/31/18 Range/Units 16:34 Urine Color Yellow (Yellow) Urine Clarity Clear (Clear) Urine pH 6.0 (5.0-8.0) pH Units Ur Specific [place] 1.012 (1.010-1.025) Urine Protein Negative (Neg-Trace) mg/dL Urine Glucose (UA) 500 H (Normal) mg/dL - Impressions ITS Impressions Chest X-Ray 10/31/18 15:29 IMPRESSION: 1. No acute cardiopulmonary process identified. D/ / Quang Garcia MD / Quang Garcia MD Interpreting Provider: Quang Garcia MD Abdomen/Pelvis CT 10/31/18 15:30 IMPRESSION: No acute abdominopelvic findings. Minimal thickening of the bladder wall. Please correlate with urinalysis. D/ / Tien Ferrer / Tien Ferrer Interpreting Provider: Tien Ferrer Chest CT 10/31/18 15:30 IMPRESSION: No pneumonia or edema. There is mild emphysema with a few scattered tiny indeterminate noncalcified pulmonary nodules RECOMMENDATIONS: Fleischner Society guidelines for follow-up and management of incidentally detected pulmonary nodules: Multiple Solid Nodules: Nodule size less than 6 mm In a low-risk patient, no routine follow-up. In a high-risk patient, optional CT at 12 months. - Low risk patients include individuals with minimal or absent history of smoking and other known risk factors. - High risk patients include individuals with a history or smoking or known risk factors. Radiology 2017 http://pubs.rsna.org/doi/full/10.1148/radiol.1360540549 D/ / Quang Up MD / Quang Up MD Interpreting Provider: Quang Up MD Head CT 10/31/18 15:30 IMPRESSION: No acute intracranial abnormality. D/ / 10/31/2018 16:40:32 Shane Cifuentes MD / aziza Interpreting Provider: Shane Cifuentes MD - Time Spent With Patient Total time spent is greater than 50% in coordination of care (as documented) at patient's floor/unit and/or counseling patient: - Attending Attestation I examined this patient and my medical decision-making was reviewed with the resident physician. I agree with the documented findings, disposition and treatment plan as described except to the extent set forth below. <Stacy Go N - Last Filed: 10/31/18 19:57> Date of Encounter: 10/31/18 Time of Encounter: 17:19 Internal Medicine - H&P: HPI Chief complaint: AMS Admitted From: Emergency Dept Plans for Post Hospital Care: Home History of present illness: Ms. Weir is a 58 year old female with a history of CAD, hypertension, hyperlipidemia, diabetes, autonomic neuropathy, and peripheral vascular disease. She presented to the ED via EMS for evaluation of a 2-3 day history of increased somnolence and decreased mentation. Family reports that the patient has reported increased fatigue and weakness over the last several months, with multiple falls and near syncopal episodes. They report that these episodes occur both while ambulating and at rest, with one episode occurring while on the toilet in the bathroom of her doctor's office. They report that the most recent episode occurred while she was sitting on the couch with family, and describe it as the patient becoming "unresponsive", which they estimate lasted approximately 10-20 minutes. Once this resolved patient did not appear to be confused, but did report increased fatigue. They estimate that these episodes occur ~1x/week, and are not associated with any particular triggers or events. Per family, patient has not had any recent illnesses or significant medication changes. She did undergo LHC in August of this year, with placement of a stent in the right RCA. Initial vital signs obtained in the emergency department were as follows: temperature 98.6, HR 74, RR 20, BP 104/56, and oxygen saturation 97%. Laboratory studies were significant for WBC 11.3, sodium 135, CO2 20, creatinine 1.25, glucose 277, and lactic acid 3.5. Urinalysis was only significant for glucosuria. UDS was negative, and head CT demonstrated no acute intracranial abnormalities. CT of the chest demonstrated mild emphysema with a few scattered tiny indeterminate noncalcified pulmonary nodules. Abdominal CT demonstrated minimal thickening of the bladder wall, but no acute abdominopelvic findings. Patient was seen and evaluated while in the emergency department. At that time, she appeared to be resting comfortably, and would wake up with a combination of verbal and tactile stimulus; however, she did quickly returned to sleep, sometimes drifting off before answering questions posed to her. Review of systems is significant for generalized weakness and fatigue, shortness of breath, generalized myalgias, and low back pain. Past Med Surg Social Fam HX - Past Medical History Medical history: cancer (ovarian), coronary artery disease, diabetes, hyperlipidemia, hypertension, peripheral artery disease, syncope, other Additional medical history: fatty liver, peripheral neuropathy, arrhythmia Psychiatric history: anxiety, depression - Past Surgical History Surgical History: angioplasty/stent (x2 in 2018, x1 2019), breast surgery (left lumpectomy), cancer surgery, carotid endarterectomy (right), cholecystectomy, hysterectomy, other (lumbar spine surgery) - Social History Smoking Status: Current every day smoker Smokeless Tobacco Status: No Alcohol use: none Drug use: none All Systems PM: A 10-system review of systems was performed and is negative for pertinent findings except as documented above in the HPI. - Constitutional Constitutional: fatigue, falls, lethargy, malaise, weakness - EENT Eyes: blurry vision Ears: tinnitus - Cardiovascular Cardiovascular ROS IM: syncope (per family report), no chest pain, no diaphoresis, no dyspnea, no lightheadedness, no palpitations - Respiratory Respiratory: dyspnea - Gastrointestinal Gastrointestinal: no abdominal pain, no diarrhea, no hematemesis, no hematochezia, no melena, no nausea, no vomiting - Musculoskeletal Musculoskeletal ROS IM: back pain, muscle weakness, myalgias - Neurological Neurological ROS: dizziness, frequent falls, headache(s), weakness - Constitutional Vitals: Temp Pulse Resp BP Pulse Ox 98.6 F 67 17 90/56 96 10/31/18 15:24 10/31/18 16:29 10/31/18 16:29 10/31/18 16:29 10/31/18 16:29 Exam: GENERAL: Well-developed, well-nourished adult female lying in bed in no acute distress. She is extremely somnolent and difficult to wake, falling asleep very quickly if not continuously stimulated. HEENT: Atraumatic and normocephalic. Mucous membranes appear dry. CARDIOVASCULAR: Regular rate and rhythm. S1 and S2 present. No murmurs, gallops, or rubs. RESPIRATORY: Clear to auscultation bilaterally. Chest rises and falls symmetrically without accessory muscle use. GASTROINTESTINAL: Bowel sounds present 4 quadrants. Abdomen is soft and nondist ended. Patient voices diffuse tenderness to palpation. EXTREMITIES: No clubbing, cyanosis, or edema. Patient is tender to palpation of bilateral lower extremities. SKIN: Warm, dry, and intact. No rashes, wounds, or discoloration. NEUROLOGIC: Patient is extremely somnolent and difficult to wake; however, she does appear to answer questions appropriately and follows commands. No apparent focal deficits. 2/4 bilateral patellar reflexes. PSYCHIATRIC: Unable to assess secondary to somnolence and mental status. Internal Med - H&P Results - Labs CBC & Chem 7: 10/31/18 15:40 10/31/18 15:40 Labs: Short CBC 10/31/18 Range/Units 15:40 WBC 11.3 H (4.3-11.1) K/mcL Hgb 13.7 (11.5-15.4) g/dL Hct 41.6 (35.3-44.9) % Plt Count 211 (140-400) K/mcL Neutrophils # 7.7 (1.6-8.9) K/mcL BMP 10/31/18 15:40 Sodium 135 L Potassium 3.9 Chloride 102 Carbon Dioxide 20 L BUN 14 Creatinine 1.25 H Glucose 277 H Calcium 9.8 Cardiac Enzymes 10/31/18 Range/Units 15:40 Troponin I < 0.03 (< 0.04) ng/mL Liver Function 10/31/18 Range/Units 15:40 Total Bilirubin 0.4 (0.3-1.0) mg/dL Direct Bilirubin 0.1 (0.0-0.2) mg/dL AST 19 (13-39) Units/L ALT 20 (7-52) Units/L Alkaline Phosphatase 108 H (34-104) Units/L Albumin 4.2 (3.5-5.7) g/dL Urine 10/31/18 Range/Units 16:34 Urine Color Yellow (Yellow) Urine Clarity Clear (Clear) Urine pH 6.0 (5.0-8.0) pH Units Ur Specific [place] 1.012 (1.010-1.025) Urine Protein Negative (Neg-Trace) mg/dL Urine Glucose (UA) 500 H (Normal) mg/dL - Impressions ITS Impressions Chest X-Ray 10/31/18 15:29 IMPRESSION: 1. No acute cardiopulmonary process identified. D/ / Quang Garcia MD / Quang Garcia MD Interpreting Provider: Quang Garcia MD Abdomen/Pelvis CT 10/31/18 15:30 IMPRESSION: No acute abdominopelvic findings. Minimal thickening of the bladder wall. Please correlate with urinalysis. D/ / Tien Ferrer / Tien Ferrer Interpreting Provider: Tien Ferrer Chest CT 10/31/18 15:30 IMPRESSION: No pneumonia or edema. There is mild emphysema with a few scattered tiny indeterminate noncalcified pulmonary nodules RECOMMENDATIONS: Fleischner Society guidelines for follow-up and management of incidentally detected pulmonary nodules: Multiple Solid Nodules: Nodule size less than 6 mm In a low-risk patient, no routine follow-up. In a high-risk patient, optional CT at 12 months. - Low risk patients include individuals with minimal or absent history of smoking and other known risk factors. - High risk patients include individuals with a history or smoking or known risk factors. Radiology 2017 http://pubs.rsna.org/doi/full/10.1148/radiol.3937695015 D/ / Quang Up MD / Quang Up MD Interpreting Provider: Quang Up MD Head CT 10/31/18 15:30 IMPRESSION: No acute intracranial abnormality. D/ / 10/31/2018 16:40:32 Shnae Cifuentes MD / aziza Interpreting Provider: Shane Cifuentes MD - Assessment and Plan (1) Acute encephalopathy Current Visit: Yes Status: Acute Assessment and plan: Unclear etiology with broad differential, including CVA/cerebral ischemia, viral/aseptic meningitis, polypharmacy, hypoxia/hypercapnia, intoxication, complicated migraine, and autoimmune vasculitis. Rationale for differential diagnoses: * CVA/cerebral ischemia - Patient has a history of peripheral arterial disease, with a right carotid endarterectomy performed in 2016. Review of operative note shows that this was done on an urgent basis, as patient was found to have 90-95% proximal artery stenosis though angiography 3 months previously had been negative for any significant disease. Head CT obtained in the emergency department was negative for any acute intracranial abnormality; however, considering history of vascular disease, occlusion or stenosis of the carotid arteries or cerebral vasculature cannot be excluded. * Viral/aseptic meningitis - Laboratory studies are significant for mild leukocytosis (WBC 11.3) and lactic acidosis (3.5). CT imaging did not demonstrate evidence of pneumonia or other acute infectious process. U rinalysis was not suspicious for infection. * Hypoxia/hypercapnia - History of COPD. Patient does report shortness of breath associated with fatigue and syncopal episodes. * Polypharmacy - Home medication list is significant for relatively high doses of both gabapentin and tizanidine; these medications in the setting of current MICAH could contribute to this acute presentation. * Intoxication - UDS obtained in the emergency department was negative; however, laboratory studies have not been obtained to rule out other potential toxins, such as salicylates or acetaminophen. * Complicated migraine - Patient reports currently experiencing a headache, and does suffer from chronic headaches. She reports associated sensitivity to both light and noise, as well as intermittent tinnitus. She reports experiencing blurry vision before the onset of some of her headaches. Due to her coronary history, she has been told in the past that she cannot take migraine medications. It is possible that some of her current symptoms may be treatable to this etiology. * Autoimmune vasculitis - History of chronic headaches, severe fatigue, and myalgias. Plan: - Additional laboratory studies to assist with ruling in/out possible etiologies as follows: * Infection - procalcitonin and repeat lactic acid; blood cultures pending. * Hypoxia/hypercapnia - ABG. * Intoxication - ammonia, salicylate, acetaminophen, ethylene glycol, and gabapentin levels. * Autoimmune vasculitis - ESR, ANDREW. * Others - creatine kinase, B12, and folate. - Repeat carotid duplex ultrasound. - Hold sedating medications, including gabapentin and tizanidine. - Neurology consult placed; appreciate assistance regarding workup and management of this problem. - MRI and EEG pending tomorrow morning. (2) Lactic acidosis Current Visit: Yes Status: Acute Assessment and plan: Likely secondary to dehydration, with lower suspicion for infection vs. medic ation related (home medication of metformin). - IVF hydration with 0.9% NaCl @ 125mL/hour x2L. - Hold home medication of metformin. (3) MICAH (acute kidney injury) Current Visit: Yes Status: Acute Assessment and plan: Likely secondary to dehydration. Baseline creatinine appears to be 0.80.9. - IVF hydration as above. - Hold nephrotoxic and renally metabolized medications, including metformin, losartan, and gabapentin. - Repeat and trend serum creatinine with AM laboratory studies. (4) Diabetes Current Visit: Yes Status: Chronic Assessment and plan: History of diabetes, with home medications of metformin and subcutaneous insulin. Laboratory studies were significant for serum glucose of 277, and urin alysis demonstrated glucosuria of 500 mg/dL. - Accu-Cheks and low-dose SSI ACHS. - Obtain hemoglobin A1c with AM laboratory studies. 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 - Continue dual antiplatelet therapy with aspirin and Plavix. - Continue home beta j carlos and statin therapy. Qualifiers: Coronary Disease-Associated Artery/Lesion type: [place] artery [place] vs. transplanted heart: [place] heart Associated angina: without angina Qualified Code(s): I25.10 - Atherosclerotic heart disease of [place] coronary artery without angina pectoris (6) Hypertension Current Visit: Yes Status: Chronic Assessment and plan: History of hypertension, with home medications of metoprolol and losartan. - Continue toprol XL 50mg daily. Hold losartan secondary to MICAH. Qualifiers: Hypertension type: essential hypertension Qualified Code(s): I10 - Essen tial (primary) hypertension (7) DVT prophylaxis Current Visit: Yes Status: Acute Assessment and plan: - Heparin 5000u SQ Q8H. - Time Spent With Patient Total time spent is greater than 50% in coordination of care (as documented) at patient's floor/unit and/or counseling patient:
[2018-10-31] MEDS ORDERED: Naloxone 0.4 MG/ML INJ IVP PRN (18:43)
[2018-10-31] MEDS ORDERED: Dextrose Gel 15 GM/37.5 ML TUBE PO PRN ×2 (18:53)
[2018-10-31] MEDS ORDERED: D5% in Water 1,000 ML IVC PRN (18:53)
[2018-10-31] MEDS ORDERED: *HR* Dextrose 50 % in Water (Syg) 50 ML SYRINGE IVP PRN (18:53)
[2018-10-31] MEDS: 0.9 % Sodium Chloride 1,000 ML IVC SCH (19:40)
[2018-10-31 19:50] LABS: ABG Base Excess -3 mEq/L (-2 to 3); ABG HCO3 22 mEq/L (21-27); ABG Oxygen Saturation 94 % (95-98); ABG PCO2 38 mmHg (35-45); ABG PH 7.38 pH Units (7.32-7.45); ABG PO2 72 mmHg (85-104); ABG TCO2 23 mEq/L (20-26)
[2018-10-31 20:04] LABS: Acetaminophen < 10 mcg/mL (10-20); Creatine Kinase 31 Units/L (30-223); Salicylate < 2.5 mg/dL (15.0-30.0)
[2018-10-31 20:26] LABS: Procalcitonin < 0.02 ng/mL (0.00-0.15)
[2018-10-31 20:33] LABS: Vitamin B12 221 pg/mL (250-1100)
[2018-10-31] MEDS: Insulin LISPRO 300 UNITS/3 ML VIAL SQ SCH (21:00)
[2018-11-01] MEDS: Insulin LISPRO 300 UNITS/3 ML VIAL SQ SCH ×5 (01:05→20:39)
[2018-11-01] MEDS: *HR* Heparin 5,000 UNIT/ML VIAL SQ SCH ×4 (01:06→20:35)
[2018-11-01 03:58] LABS: Basophils % 0.5 %; Eosinophils # 0.1 K/mcL (0.0-0.6); Eosinophils % 1.3 %; Hematocrit 33.9 % (35.3-44.9); Hemoglobin 11.2 g/dL (11.5-15.4); Immature Granulocytes % 0.3 % (0-4); Lymphocytes # 3.2 K/mcL (0.6-4.6); Lymphocytes % 40.6 %; Mean Corpuscular Hemoglobin 29.4 pg (28.0-33.3); Mean Platelet Volume 10.8 fL (9.4-12.4); Monocytes # 0.5 K/mcL (0.0-1.3); Monocytes % 6.1 %; Platelet Count 179 K/mcL (140-400); Red Blood Count 3.81 M/mcL (3.82-4.97); Red Cell Distribution Width 13.7 % (11.5-14.5); Segmented Neutrophils % 51.2 %; White Blood Count 7.8 K/mcL (4.3-11.1)
[2018-11-01 04:17] LABS: Alanine Aminotransferase 15 Units/L (7-52); Albumin 3.5 g/dL (3.5-5.7); Albumin/Globulin Ratio 1.5 (1.1-2.2); Alkaline Phosphatase 88 Units/L (34-104); Aspartate Amino Transferase 14 Units/L (13-39); BUN/Creatinine Ratio 14 (6-26); Bilirubin,Total 0.3 mg/dL (0.3-1.0); Blood Urea Nitrogen 14 mg/dL (6-20); Calcium 8.6 mg/dL (8.6-10.3); Carbon Dioxide 22 mEq/L (23-29); Chloride 109 mEq/L (98-107); Glucose 221 mg/dL (70-105); Osmolality,Calculated 293 (280-300); Potassium 4.1 mEq/L (3.5-5.1); Sodium 138 mEq/L (136-145); Total Protein 5.9 g/dL (6.4-8.9); eGFR For African Americans > 60 (> 60); eGFR For Non-African Americans 55 (> 60)
[2018-11-01 04:18] LABS: Globulin 2.4 g/dL (2.4-3.5)
[2018-11-01] MEDS: 0.9 % Sodium Chloride 1,000 ML IVC SCH (04:32)
[2018-11-01] MEDS: Metoprolol XL (24 HR) Succ 50 MG TAB.ER.24H PO SCH (08:15)
[2018-11-01] MEDS: Aspirin Enteric Coated 81 MG Tablet PO SCH (08:15)
[2018-11-01] MEDS: Isosorbide MONOnitrate (24 HR) 30 MG TAB.ER.24H PO SCH (08:15)
--- NOTE | 2018-11-01 08:32 | Internal Med Progress Note ---
<Jaxson Walton F - Last Filed: 11/01/18 17:07> Hospitalist Progress Note - Encounter Date of Encounter: 11/01/18 Time of Encounter: 08:32 - Subjective Interval History: Patient was seen and examined at bedside. No acute events overnight. Patient is endorsing a headache this morning that is bandlike around her head. Otherwise denies any vision changes, chest pain, shortness of breath, abdominal pain, vomiting, fevers, chills. No other episodes of syncope. No weakness, numbness, paresthesias. - Exam Vitals: Temp Pulse Resp BP Pulse Ox 98.2 F 60 16 138/63 97 11/01/18 07:47 11/01/18 07:47 11/01/18 07:47 11/01/18 07:47 11/01/18 07:47 Exam: GENERAL: Well-developed, well-nourished adult female lying in bed in no acute distress. Conversant, AAOx4. HEENT: Atraumatic and normocephalic. Mucous membranes appear dry. CARDIOVASCULAR: Regular rate and rhythm. S1 and S2 present. No murmurs, gallops, or rubs. RESPIRATORY: Clear to auscultation bilaterally. Chest rises and falls symmetrically without accessory muscle use. GASTROINTESTINAL: Bowel sounds present 4 quadrants. Abdomen is soft and nondistended. Patient voices diffuse tenderness to palpation. EXTREMITIES: No clubbing, cyanosis, or edema. Patient is tender to palpation of bilateral lower extremities. SKIN: Warm, dry, and intact. No rashes, wounds, or discoloration. NEUROLOGIC: AAOx4 this morning. CN2-12 grossly intact. No apparent focal deficits. 2/4 bilateral patellar reflexes. PSYCHIATRIC: Appropriate affect, no anxious or depressed mood. - Assessment and Plan (1) Altered mental status Current Visit: Yes Status: Acute Assessment and Plan: AMS with unclear etiology. Concerning for CVA/TIA, meningitis, polypharmacy, hypoxia/hypercapnia, intoxication, migraine, vasculitis. Initial labs notable for a white count of 11.3. BMP showing MICAH. Lactic acidosis of 3.5. CT head/CAP showed no acute findings; mild emphysema with pulmonary nodules, minimal thickening of the bladder wall. 11/01 MRI brain showed no acute abnormality, no infarct, minimal chronic microvascular ischemic changes and chronic lacunar infarcts. Plan: - Neurology consulted: recs carotid ultrasound/MRI/EEG - Consult vascular surgery given carotid US findings - Follow up EEG - Lactic acidosis resolved with fluids, neg PCT - Follow up labs: ANDREW - Hold sedating meds: zanaflex, gabapentin (2) MICAH (acute kidney injury) Current Visit: Yes Status: Acute Assessment and Plan: Likely secondary to dehydration. Baseline creatinine appears to be 0.80.9. - Currently resolving Cr 1.02 - IVF hydration with 0.9% NaCl @ 125mL/hour x2L - Hold nephrotoxic and renally metabolized medications, including metformin, losartan, and gabapentin - Repeat and trend serum creatinine with AM laboratory studies (3) Lactic acidosis Current Visit: Yes Status: Acute Assessment and Plan: Likely secondary to dehydration, with lower suspicion for infection vs. medication related (home medication of metformin). - Resolving, repeat lactate 1.6 - IVF hydration with 0.9% NaCl @ 125mL/hour x2L - Hold home medication of metformin (4) Diabetes Current Visit: Yes Status: Chronic Assessment and Plan: History of diabetes, with home medications of metformin and subcutaneous insulin. Laboratory studies were significant for serum glucose of 277, and urinalysis demonstrated glucosuria of 500 mg/dL. Plan: - Accu-Cheks and low-dose SSI ACHS. - A1c of 9.7% (5) Hyperlipidemia Current Visit: Yes Status: Chronic Assessment and Plan: Recheck lipid panel. (6) Hypertension Current Visit: Yes Status: Chronic Assessment and Plan: Hx of HTN, home meds metoprolol/losartan. Plan: - Continue toprol XL 50 mg daily - Holding losartan due to MICAH (7) CAD (coronary artery disease) Current Visit: Yes Status: Chronic DVT Prophylaxis: DVT ppx: SQ heparin Activity: as tolerated Fluids: none Electrolytes: replete as necessary Nutrition: cardiac diet GI ppx: none Lines: 1x PIV Consults: neurology Code: FULL CODE Dispo: likely home 1-2 days - Time Spent with Patient Total time spent is greater than 50% in coordination of care (as documented) at patient's floor/unit and/or counseling patient: less than 15 minutes Plan of Care Discussed with: patient Internal Medicine: Result - Labs CBC & Chem 7: 11/01/18 03:19 11/01/18 03:19 Labs: Short CBC 10/31/18 11/01/18 Range/Units 15:40 03:19 WBC 11.3 H 7.8 (4.3-11.1) K/mcL Hgb 13.7 11.2 L D (11.5-15.4) g/dL Hct 41.6 33.9 L (35.3-44.9) % Plt Count 211 179 (140-400) K/mcL Neutrophils # 7.7 4.0 (1.6-8.9) K/mcL BMP 10/31/18 11/01/18 15:40 03:19 Sodium 135 L 138 Potassium 3.9 4.1 Chloride 102 109 H Carbon Dioxide 20 L 22 L BUN 14 14 Creatinine 1.25 H 1.02 Glucose 277 H 221 H Calcium 9.8 8.6 Cardiac Enzymes 10/31/18 Range/Units 15:40 Troponin I < 0.03 (< 0.04) ng/mL Liver Function 10/31/18 11/01/18 Range/Units 15:40 03:19 Total Bilirubin 0.4 0.3 (0.3-1.0) mg/dL Direct Bilirubin 0.1 (0.0-0.2) mg/dL AST 19 14 (13-39) Units/L ALT 20 15 (7-52) Units/L Alkaline Phosphatase 108 H 88 (34-104) Units/L Albumin 4.2 3.5 (3.5-5.7) g/dL Urine 10/31/18 Range/Units 16:34 Urine Color Yellow (Yellow) Urine Clarity Clear (Clear) Urine pH 6.0 (5.0-8.0) pH Units Ur Specific [place] 1.012 (1.010-1.025) Urine Protein Negative (Neg-Trace) mg/dL Urine Glucose (UA) 500 H (Normal) mg/dL - ABG Interpretation ABG results: ABG ABG pH 7.38 pH Units (7.32-7.45) 10/31/18 19:46 ABG pCO2 38 mmHg (35-45) 10/31/18 19:46 ABG pO2 72 mmHg (85-104) L 10/31/18 19:46 ABG O2 Saturation 94 % (95-98) L 10/31/18 19:46 PT/INR, D-dimer PT 11.4 Seconds (9.4-12.1) 10/31/18 15:40 - Impressions Impressions Chest X-Ray 10/31/18 15:29 IMPRESSION: 1. No acute cardiopulmonary process identified. D/ / Quang Garcia MD / Quang Garcia MD Interpreting Provider: Quang Garcia MD Abdomen/Pelvis CT 10/31/18 15:30 IMPRESSION: No acute abdominopelvic findings. Minimal thickening of the bladder wall. Please correlate with urinalysis. D/ / Tien Ferrer / Tien Ferrer Interpreting Provider: Tien Ferrer Chest CT 10/31/18 15:30 IMPRESSION: No pneumonia or edema. There is mild emphysema with a few scattered tiny indeterminate noncalcified pulmonary nodules RECOMMENDATIONS: Fleischner Society guidelines for follow-up and management of incidentally detected pulmonary nodules: Multiple Solid Nodules: Nodule size less than 6 mm In a low-risk patient, no routine follow-up. In a high-risk patient, optional CT at 12 months. - Low risk patients include individuals with minimal or absent history of smoking and other known risk factors. - High risk patients include individuals with a history or smoking or known risk factors. Radiology 2017 http://pubs.rsna.org/doi/full/10.1148/radiol.[email or web address] D/ / Quang Up MD / Quang Up MD Interpreting Provider: Quang Up MD Head CT 10/31/18 15:30 IMPRESSION: No acute intracranial abnormality. D/ / 10/31/2018 16:40:32 Shane Cifuentes MD / aziza Interpreting Provider: Shane Cifuentes MD Consult Discharge Plan - Plan Referrals: Josr Patel MD [Primary Care Provider] - <Valerie Stearns - Last Filed: 11/01/18 18:10> Hospitalist Progress Note - Encounter Date of Encounter: 11/01/18 - Exam Vitals: Temp Pulse Resp BP Pulse Ox 98.5 F 69 18 153/71 97 11/01/18 15:45 11/01/18 15:45 11/01/18 15:45 11/01/18 15:45 11/01/18 07:47 - Time Spent with Patient Total time spent is greater than 50% in coordination of care (as documented) at patient's floor/unit and/or counseling patient: Internal Medicine: Result - Labs CBC & Chem 7: 11/01/18 03:19 11/01/18 03:19 Labs: Short CBC 11/01/18 Range/Units 03:19 WBC 7.8 (4.3-11.1) K/mcL Hgb 11.2 L D (11.5-15.4) g/dL Hct 33.9 L (35.3-44.9) % Plt Count 179 (140-400) K/mcL Neutrophils # 4.0 (1.6-8.9) K/mcL BMP 11/01/18 03:19 Sodium 138 Potassium 4.1 Chloride 109 H Carbon Dioxide 22 L BUN 14 Creatinine 1.02 Glucose 221 H Calcium 8.6 Liver Function 11/01/18 Range/Units 03:19 Total Bilirubin 0.3 (0.3-1.0) mg/dL AST 14 (13-39) Units/L ALT 15 (7-52) Units/L Alkaline Phosphatase 88 (34-104) Units/L Albumin 3.5 (3.5-5.7) g/dL - ABG Interpretation ABG results: ABG ABG pH 7.38 pH Units (7.32-7.45) 10/31/18 19:46 ABG pCO2 38 mmHg (35-45) 10/31/18 19:46 ABG pO2 72 mmHg (85-104) L 10/31/18 19:46 ABG O2 Saturation 94 % (95-98) L 10/31/18 19:46 PT/INR, D-dimer PT 11.4 Seconds (9.4-12.1) 10/31/18 15:40 - Impressions Impressions Brain MRI 11/01/18 18:25 IMPRESSION: 1. No acute intracranial abnormality. No acute infarct. 2. Minimal chronic microvascular ischemic changes. 3. Chronic lacunar infarcts in the cerebellar hemispheres bilaterally. D/ / Mohamud Tyler MD / Mohamud Tyler MD Interpreting Provider: Mohamud Tyler MD - Attending Attestation examined this patient and my medical decision-making was reviewed with the resident physician. I agree with the documented findings, disposition and treatment plan as described except to the extent set forth below. 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 transplanted heart: [place] heart Associated angina: without angina Qualified C ode(s): I25.10 - Atherosclerotic heart disease of [place] coronary artery without angina pectoris
[2018-11-01 08:37] LABS: Estimated Average Glucose 232 mg/dl
[2018-11-01] MEDS ORDERED: Acetaminophen 325 MG TABLET PO PRN (09:51)
--- NOTE | 2018-11-01 11:30 | Neurology - Consult Note ---
<Bayron Parikh M - Last Filed: 11/01/18 11:22> Date of Encounter: 11/01/18 Time of Encounter: 10:30 Assessment and Plan (1) Syncope Current Visit: Yes Status: Acute Given patients past medical history including carotid artery stenosis and report of 2 year history of syncopal like episodes with loss of consciousness will evaluate carotid ultrasound. Will also evaluate EEG to exclude seizures. MRI to evaluate for structural causes. Given patients description of irregular heart rate/rhythm when these episodes occur a cardiac cause of her syncopal episodes may need to be explored further. Will review results of ordered tests and con tinue to follow with further recommendations pending these results. Further recommendations per addendum by Dr Silvestre, attending neurologist. Qualifiers: Syncope type: vasovagal syncope Qualified Code(s): R55 - Syncope and collapse History of Present Illness Chief complaint: "Passing out" HPI: Ms. Weir is a 58 year old female with past medical history significant for CAD s/p stent (08/2018), HTN, HLD, DM with peripheral neuropathy, and PVD. Patient reports fatigue and weakness for the past 2 years with episodes of loss of consciousness. Her most recent episode of loss of consciousness was just prior to admission and Ms. Weir states her and kids witness these. She states that she will begin to feel faint and then loses consciousness. She states these episodes have been occurring intermittently for the past two years with the only identifiable trigger being her back pain which she believes may be contributing. She states that she fears leaving her house due to these episodes occurring while in public which has occurred in the past. When asked to describe these episodes she reports that she becomes short of breath, her heart begins to race, and then her heart slows down and "feels like it's going to stop" and she loses consciousness. During these events she admits to loss of bowel and bladder function. She states they have been witnessed and that those who witness them have never reported epileptiform movements during the loss of consciousness. She denies biting her tongue during these episodes. She states the loss of consciousness has lasted "several hours" in the past but that it usually is fairly brief. She denies chest pain, or shortness of breath at time of interview. She does admit to exertional dyspnea in her home "when going up stairs." She admits to checking her blood glucose after these episodes of loss of consciousness and states it is sometimes "low" with her recalling a reading of "70" after one such episode of loss of consciousness. She also reports headaches which are not relieved by over the counter medications occuring during this same 2 year period. She admits to getting them in the past but states they are more severe and frequent in the past two years. She denies nausea or photophobia during these headaches. She states that sleep helps the headaches but "doesn't necessarily make them go away." Past Med Surg Social Fam HX - Past Medical History Medical history: cancer, coronary artery disease, diabetes, hyperlipidemia, hypertension, peripheral artery disease, syncope, other Additional medical history: Cardiac Stents x2 ,fatty liver, peripheral neuropathy, arrhythmia Psychiatric history: anxiety, depression - Past Surgical History Surgical History: angioplasty/stent, breast surgery, cancer surgery, carotid endarterectomy, cholecystectomy, hysterectomy, other Additional surgical history: LEFT BREAST LUMPECTOMY, RIGHT CAROTID ENDARTERECTOMY, LOWER BACK SURGERY, HEART STENT , HEART STENT - Social History Smoking Status: Current every day smoker Packs per day: 1/2 Smokeless Tobacco Status: No Alcohol use: none Drug use: none Current living situation: Home - Independent Activity Level: Independent ambulation - Family History Mother Hx Family Cardiac Disorders: Yes (mi) Medications and Allergies Gabapentin [Neurontin] 900 mg PO TID 07/17/15 [History] Insulin ASPART [Novolog Flexpen] 0 - 12 unit SQ TIDWM 07/17/15 [History] Insulin Glargine,Hum.rec.anlog [Lantus Solostar] 50 unit SQ HS 07/17/15 [History] Losartan Potassium [Cozaar] 50 mg PO DAILY 07/17/15 [History] Tizanidine HCl [Zanaflex] 4 mg PO TID PRN 07/17/15 [History] Aspirin Enteric Coated [Aspirin EC] 81 mg PO DAILY 09/14/15 [History] Clopidogrel [Plavix] 75 mg PO DAILY #30 tablet 04/10/17 [Rx] Metformin HCl [Glucophage] 1,000 mg PO BID #0 04/10/17 [Rx] Cholecalciferol (Vitamin D3) [Vitamin D3] 5,000 unit PO DAILY 08/18/18 [History] Isosorbide MONOnitrate [Isosorbide Mononitrate ER] 30 mg PO DAILY 08/18/18 [History] Metoprolol Succinate [Toprol Xl] 50 mg PO DAILY 08/18/18 [History] PARoxetine HCl [Paroxetine HCl] 40 mg PO DAILY 08/18/18 [History] Rosuvastatin Calcium 20 mg PO DAILY 08/18/18 [History] Allergy/AdvReac Type Severity Reaction Status Date / Time aspirin Allergy Mild See Verified 08/18/18 20:24 Comments Penicillins [PCN] Allergy Rash Verified 08/18/18 20:24 duloxetine [From Cymbalta] AdvReac Headache Verified 08/18/18 20:24 All Systems: The remainder of the systems were reviewed and are negative - Constitutional Constitutional ROS IM: headache(s), weakness, no chills, no excessive sweating - Nose, Mouth, Throat Nose, mouth and throat: headache(s), no abnormal hearing, no disequilibrium - Respiratory Respiratory IM: cough (chronic cough), dyspnea on exertion - Gastrointestinal Gastrointestinal: nausea, no abdominal pain, no diarrhea - Musculoskeletal Musculoskeletal ROS IM: back pain, muscle weakness (reports feeling of generali zed weakness ), numbness (distal numbness in bilateral lower extremities (diabetic neuropathy)), no abnormal gait - Integumentary Integumentary IM: no acne, no swelling, no jaundice - Neurological Neurological ROS: headache(s), sensory deficit (diminished sensation in distal bilateral lower extremities), syncope, weakness, no abnormal hearing, no abnormal movements, no abnormal speech, no confusion, no focal weakness, no lack of coordination, no loss of vision, no memory loss, no tingling - Psychiatric Psychiatric general PM: no confusion, no hallucinations - Endocrine Endocrine IM: polyphagia, polyuria Physical Examination - Vital Signs Vital Signs: Initial Vital Signs Temp Pulse Resp BP Pulse Ox 98.6 F 74 20 104/56 97 10/31/18 15:24 10/31/18 15:24 10/31/18 15:24 10/31/18 15:24 10/31/18 15:24 - Exam Exam: GENERAL: Comfortable in no acute distress HEENT: Normal LUNGS: CTA HEART: RRR, S1 S2 Audible, no murmur EXTREMITIES: No Pedal edema. DETAILED NEUROLOGICAL EXAMINATION: MENTAL STATUS: Oriented to person, place, date and situation. Memory: knows the President, Aware of recent events Mild deficits in recent memory as evidenced by delayed recall score of 1/3, Attention span is normal Cranial Nerve Examination: CN - II: Visual Acuity, Field of Vision Normal, Pupils- size shape reaction to light and accommodation: All normal. CN III, IV, : External ocular movements were intact, Pupils were reactive, Nodrooping of the eyelids CN V: Sensation over the face to light touch and pinprick all normal. Corneal reflexes not tested CN VII: No facial asymmetry, no flattening of nasolabial folds, no difficulty in closing the eyes, no loss of forehead wrinkles, no difficulty in eye-closure, frowning raising eyebrows. CNVIII: No significant hearing loss CN IX, X: Uvula centralized not deviated, Gag reflex: Not tested CN X1: Sternocleidomastoid, trapezius, normal or evidence of any weakness. CN X11: No Dysarthria, no wasting or fibrilation of tongue muscles, no deviation, tongue muscle strength normal. Motor examination: No hypertrophy, tone was normal, power grade Upper limbs Proximal- No difficulty in lifting the arms above the head. Distal- No weakness in distal muscles On formal testing 4/5 all over Lower limbs On formal testing 4/5 all over Coordination: [id number] normal. Target pursuit normal finger tapping normal, Rapid alternating moment of wrist normal Sensory system: Superficial sensations- Touch normal throughout except to distal bilateral lower extremities where there is marked sensory losses with patient unable to localize even touch. Pain- Pinprick normal throughout except for distal bilateral lower extremities where patient did not register pinprick, Deep sensation normal, Joint position sense normal except in metatarsals/phalanges of feet where patient was unable to accurately describe po sition of toes with eyes closed. Cortical sensation, Tactile discrimination, localization and extinction all normal. Deep tendon reflexes symmetric bilateral No sign of meningeal irritation Gait Examination: Deferred Results - Laboratory Findings CBC and BMP: 11/01/18 03:19 11/01/18 03:19 Abnormal lab findings: Abnormal lab results WBC 11.3 K/mcL (4.3-11.1) H 10/31/18 15:40 RBC 3.81 M/mcL (3.82-4.97) L 11/01/18 03:19 Hgb 11.2 g/dL (11.5-15.4) L D 11/01/18 03:19 Hct 33.9 % (35.3-44.9) L 11/01/18 03:19 ESR 21 mm/hr (0-15) H 10/31/18 19:30 ABG pO2 72 mmHg (85-104) L 10/31/18 19:46 ABG O2 Saturation 94 % (95-98) L 10/31/18 19:46 ABG Base Excess -3 mEq/L (-2 to 3) L 10/31/18 19:46 Sodium 135 mEq/L (136-145) L 10/31/18 15:40 Chloride 109 mEq/L (98-107) H 11/01/18 03:19 Carbon Dioxide 22 mEq/L (23-29) L 11/01/18 03:19 Creatinine 1.25 mg/dL (0.60-1.20) H 10/31/18 15:40 Est GFR ( Amer) 53 (> 60) L 10/31/18 15:40 Est GFR (Non-Af Amer) 55 (> 60) L 11/01/18 03:19 Glucose 221 mg/dL (70-105) H 11/01/18 03:19 POC Glucose 183 mg/dL (70-99) H 10/31/18 20:48 Hemoglobin A1c 9.7 % (-5.6) H 11/01/18 03:19 Lactic Acid 3.5 mmol/L (0.5-2.2) H 10/31/18 15:40 Alkaline Phosphatase 108 Units/L (34-104) H 10/31/18 15:40 Serum Total Protein 5.9 g/dL (6.4-8.9) L 11/01/18 03:19 Vitamin B12 221 pg/mL (250-1100) L 10/31/18 19:30 Urine Glucose (UA) 500 mg/dL (Normal) H 10/31/18 16:34 Salicylates < 2.5 mg/dL (15.0-30.0) L 10/31/18 19:30 Acetaminophen < 10 mcg/mL (10-20) L 10/31/18 19:30 Consult Discharge Plan - Plan Referrals: Josr Patel MD [Primary Care Provider] - <Ben Silvestre - Last Filed: 11/01/18 16:56> Date of Encounter: 11/01/18 Assessment and Plan (1) Syncope Current Visit: Yes Status: Acute Chart was reviewed, the patient was seen and examined independently case was discussed with Dr. Roa. I agree with his assessment and plan as stated above. However I am not convinced that the episodes that this patient has been experiencing are neurologic in nature. The events have been occurring for 2 years now. She serendipitously loses track of her environment and finds herself and compromising position such as on the floor and various places. However she is never seemed to experience any significant consequences as a result of these episodes. She has not ever happened while driving, she has not suffered any serious bodily harm as a result. I am not convinced that these episodes are truly epileptic seizures. I am really not convinced of syncope again because of the apparent harm this nature of these events particularly since they have been occurring for 2 years now. I agree with cardiac monitoring, and one might also consider prolonged EEG as an outpatient. Otherwise, I am not convinced that antiepileptic medications will help this patient, at least not with the thought of seizure activity in mind. We will review, and comment on the results of the tests that are pending tomorrow. Qualifiers: Syncope type: vasovagal syncope Qualified Code(s): R55 - Syncope and collapse History of Present Illness HPI: The chart was reviewed, the patient was seen and examined independently. The case was discussed with Dr. Parikh. I agree with his assessment of the history of present illness as stated above. All Systems: The remainder of the systems were reviewed and are negative Review of Systems: The balance of the systems review is negative. Physical Examination - Vital Signs Vital Signs: Initial Vital Signs Temp Pulse Resp BP Pulse Ox 98.6 F 74 20 104/56 97 10/31/18 15:24 10/31/18 15:24 10/31/18 15:24 10/31/18 15:24 10/31/18 15:24 - Exam Exam: I have personally performed a [id number] assessment of the patient and have reviewed the PA/VISUAL EDUCATION TEACHER note. My impressions are as follows: I agree with the documentation of the neurologic examination as stated above. Results - Laboratory Findings CBC and BMP: 11/01/18 03:19 11/01/18 03:19 Abnormal lab findings: Abnormal lab results WBC 11.3 K/mcL (4.3-11.1) H 10/31/18 15:40 RBC 3.81 M/mcL (3.82-4.97) L 11/01/18 03:19 Hgb 11.2 g/dL (11.5-15.4) L D 11/01/18 03:19 Hct 33.9 % (35.3-44.9) L 11/01/18 03:19 ESR 21 mm/hr (0-15) H 10/31/18 19:30 ABG pO2 72 mmHg (85-104) L 10/31/18 19:46 ABG O2 Saturation 94 % (95-98) L 10/31/18 19:46 ABG Base Excess -3 mEq/L (-2 to 3) L 10/31/18 19:46 Sodium 135 mEq/L (136-145) L 10/31/18 15:40 Chloride 109 mEq/L (98-107) H 11/01/18 03:19 Carbon Dioxide 22 mEq/L (23-29) L 11/01/18 03:19 Creatinine 1.25 mg/dL (0.60-1.20) H 10/31/18 15:40 Est GFR ( Amer) 53 (> 60) L 10/31/18 15:40 Est GFR (Non-Af Amer) 55 (> 60) L 11/01/18 03:19 Glucose 221 mg/dL (70-105) H 11/01/18 03:19 POC Glucose 143 mg/dL (70-99) H 11/01/18 11:49 Hemoglobin A1c 9.7 % (-5.6) H 11/01/18 03:19 Lactic Acid 3.5 mmol/L (0.5-2.2) H 10/31/18 15:40 Alkaline Phosphatase 108 Units/L (34-104) H 10/31/18 15:40 Serum Total Protein 5.9 g/dL (6.4-8.9) L 11/01/18 03:19 Triglycerides 316 mg/dL (< 150) H 11/01/18 03:19 VLDL Cholesterol, Calc 63 mg/dL (< 31) H 11/01/18 03:19 HDL Cholesterol 26 mg/dL (40-59) L 11/01/18 03:19 Vitamin B12 221 pg/mL (250-1100) L 10/31/18 19:30 Urine Glucose (UA) 500 mg/dL (Normal) H 10/31/18 16:34 Salicylates < 2.5 mg/dL (15.0-30.0) L 10/31/18 19:30 Acetaminophen < 10 mcg/mL (10-20) L 10/31/18 19:30
[2018-11-01 11:44] LABS: Chol/HDL Ratio 4.4 (0-4.9); Cholesterol 114 mg/dL (< 200); HDL Cholesterol 26 mg/dL (40-59); LDL Cholesterol,Calculated 25 mg/dL (0-99); Triglycerides 316 mg/dL (< 150)
[2018-11-01] MEDS ORDERED: Gabapentin 300 MG CAPSULE PO ONE (16:17)
[2018-11-01] MEDS ORDERED: Gabapentin 300 MG CAPSULE PO SCH (16:30)
[2018-11-01] MEDS ORDERED: Cyanocobalamin (B-12) 1,000 MCG TABLET PO ONE (16:47)
[2018-11-01] MEDS: Gabapentin 300 MG CAPSULE PO SCH ×2 (17:35→20:36)
[2018-11-02 05:47] LABS: Basophils % 0.5 %; Eosinophils # 0.1 K/mcL (0.0-0.6); Eosinophils % 1.2 %; Hematocrit 36.6 % (35.3-44.9); Immature Granulocytes % 0.3 % (0-4); Lymphocytes # 3.5 K/mcL (0.6-4.6); Lymphocytes % 45.8 %; Mean Corpuscular HGB Conc 33.1 g/dL (31.6-35.5); Mean Corpuscular Hemoglobin 29.2 pg (28.0-33.3); Mean Corpuscular Volume 88.4 fL (83.0-100.0); Monocytes # 0.5 K/mcL (0.0-1.3); Monocytes % 6.1 %; Neutrophils # 3.6 K/mcL (1.6-8.9); Platelet Count 199 K/mcL (140-400); Red Blood Count 4.14 M/mcL (3.82-4.97); Red Cell Distribution Width 13.6 % (11.5-14.5); Segmented Neutrophils % 46.1 %; White Blood Count 7.7 K/mcL (4.3-11.1)
[2018-11-02 05:48] LABS: Hemoglobin 12.1 g/dL (11.5-15.4)
[2018-11-02] MEDS: *HR* Heparin 5,000 UNIT/ML VIAL SQ SCH ×2 (05:49→14:17)
[2018-11-02 06:04] LABS: Alanine Aminotransferase 20 Units/L (7-52); Albumin 3.9 g/dL (3.5-5.7); Albumin/Globulin Ratio 1.5 (1.1-2.2); Alkaline Phosphatase 101 Units/L (34-104); Aspartate Amino Transferase 18 Units/L (13-39); BUN/Creatinine Ratio 12 (6-26); Bilirubin,Total 0.3 mg/dL (0.3-1.0); Blood Urea Nitrogen 11 mg/dL (6-20); Calcium 9.3 mg/dL (8.6-10.3); Carbon Dioxide 21 mEq/L (23-29); Chloride 108 mEq/L (98-107); Globulin 2.6 g/dL (2.4-3.5); Glucose 192 mg/dL (70-105); Osmolality,Calculated 295 (280-300); Potassium 4.1 mEq/L (3.5-5.1); Sodium 140 mEq/L (136-145); Total Protein 6.5 g/dL (6.4-8.9); eGFR For African Americans > 60 (> 60); eGFR For Non-African Americans > 60 (> 60)
--- NOTE | 2018-11-02 07:34 | Electrocardiograph Report ---
[place] [facility] Test Date: 2018-10-31 Pat Name: Haylee Weir Department: [id number] Room: 2NE34 Gender: F Fiber Designer: : 1960 Requested By: Mónica Sepulveda Order Number: [id number] Reading MD: Dany Jaime Measurements Intervals [place] Rate: 74 P: 39 SC: 155 QRS: 40 QRSD: 94 T: -55 QT: 374 QTc: 415 Interpretive Statements Sinus rhythm Borderline repolarization abnormality Electronically Signed On 11-02-2018 6:58:07 EDT by Dany Jaime
--- NOTE | 2018-11-02 07:49 | Internal Med Progress Note ---
Hospitalist Progress Note - Encounter Date of Encounter: 11/02/18 - Subjective Interval History: Pt examined at bedside today while sitting in chair. No acute events overnight or new complaints. Reports improvement of symptoms, feeling well and ready to go home. Reports that LE neuropathy improved after taking her Gabapentin. Admits to dull midsternal chest pain that's worse on inhalation. Denies N/V/D, wheezing, SOB, dyspnea, WALLIS, dizziness, abdominal pain, or numbness. Denies other episodes of syncope. - Exam Vitals: Temp Pulse Resp BP Pulse Ox 98.0 F 65 17 128/67 96 11/02/18 04:17 11/02/18 04:17 11/02/18 04:17 11/02/18 04:17 11/02/18 04:17 Exam: GENERAL: Conversant, well-developed, well-nourished adult female sitting on chair in no acute distress. HEENT: Atraumatic and normocephalic. Mucous membranes appear dry. CARDIOVASCULAR: Regular rate and rhythm. S1 and S2 present. No murmurs, gallops, or rubs. RESPIRATORY: Clear to auscultation bilaterally. Chest rises and falls s ymmetrically without accessory muscle use. GASTROINTESTINAL: Bowel sounds present 4 quadrants. Abdomen is soft, nontender and nondistended. EXTREMITIES: No clubbing, cyanosis, or edema. Patient is non-tender to palpation of bilateral lower extremities. SKIN: Warm, dry, and intact. No rashes, wounds, or discoloration. NEUROLOGIC: AOx3 this morning. UE and LE strength improving since yesterday's e xam, 06/18 today. No apparent focal deficits. PSYCHIATRIC: Appropriate affect, no anxious or depressed mood. - Assessment and Plan (1) Acute encephalopathy Current Visit: Yes Status: Acute Assessment and Plan: AMS with unclear etiology. Brain MRI and EEG with no acute changes. No clear infectious etiology or on- going inflammatory process. Suspect polypharmacy and/or conversion disorder 2/2 emotional distress. On exam today, patient AOx3 with no obvious deficit in comprehension or answerin g questions. Plan: - Recommend f/u with PCP for evaluation of meds and their adverse effects (2) Lower extremity neuropathy Current Visit: Yes Status: Acute Assessment and Plan: Probably 2/2 diabetes. Plan: - Resume gabapentin (3) Chest pressure Current Visit: Yes Status: Acute Assessment and Plan: Reports dull midsternal pain that's worse on inspiration. Plan: - ECG and continue to monitor pt in PM (4) Hyperlipidemia Current Visit: Yes Status: Chronic Assessment and Plan: Suspection for uncontrolled HLD given pt's CV hx of stents 2x 2017 and 1x 2018. 11/01/18 Lipid panel 316 triglycerides, 114 cholesterol, 25 LDL cholesterol, 63 VLDL cholesterol, 26 HDL cholesterol. Patient counseled on healthy eating habits and exercise. Plan: - Place nutrition consult to answer pt questions regarding specific dietary options to manage HLD - Continue rosuvastatin and DAPDs (5) Hypertension Current Visit: Yes Status: Chronic Assessment and Plan: History of hypertension, with home medications of metoprolol and losartan. - Continue toprol XL 50mg daily. Continue Losartan now that MICAH has resolved. (6) Carotid arterial disease Current Visit: No Status: Acute Assessment and Plan: Carotid duplex demonstrate: R mid CCA, non-stenotic plaque; L CCA bifurcation nonstenotic, smooth, heterogeneous plaque; 60-79% stenosis in L proximal and mid ICA. Pt asymptomatic. Plan: - Recommend f/u with out-pt market specialist (7) CAD (coronary artery disease) Current Visit: Yes Status: Chronic Assessment and Plan: Continue home meds and follow outpatient cardio rec's (8) MICAH (acute kidney injury) Current Visit: Yes Status: Resolved Assessment and Plan: Resolved. (9) Lactic acidosis Current Visit: Yes Status: Resolved Assessment and Plan: Resolved DVT Prophylaxis: DVT ppx: SQ heparin Activity: as tolerated Fluids: none Electrolytes: replete as necessary Nutrition: cardiac diet GI ppx: none Lines: 1x PIV Consults: neurology Code: FULL CODE Dispo: likely home 0-1 days - Time Spent with Patient Total time spent is greater than 50% in coordination of care (as documented) at patient's floor/unit and/or counseling patient: Internal Medicine: Result - Labs CBC & Chem 7: 11/02/18 04:59 11/02/18 04:59 Labs: Short CBC 11/02/18 Range/Units 04:59 WBC 7.7 (4.3-11.1) K/mcL Hgb 12.1 (11.5-15.4) g/dL Hct 36.6 (35.3-44.9) % Plt Count 199 (140-400) K/mcL Neutrophils # 3.6 (1.6-8.9) K/mcL BMP 11/01/18 11/02/18 03:19 04:59 Sodium 138 140 Potassium 4.1 4.1 Chloride 109 H 108 H Carbon Dioxide 22 L 21 L BUN 14 11 Creatinine 1.02 0.92 Glucose 221 H 192 H Calcium 8.6 9.3 Liver Function 11/01/18 11/02/18 Range/Units 03:19 04:59 Total Bilirubin 0.3 0.3 (0.3-1.0) mg/dL AST 14 18 (13-39) Units/L ALT 15 20 (7-52) Units/L Alkaline Phosphatase 88 101 (34-104) Units/L Albumin 3.5 3.9 (3.5-5.7) g/dL - ABG Interpretation ABG results: ABG ABG pH 7.38 pH Units (7.32-7.45) 10/31/18 19:46 ABG pCO2 38 mmHg (35-45) 10/31/18 19:46 ABG pO2 72 mmHg (85-104) L 10/31/18 19:46 ABG O2 Saturation 94 % (95-98) L 10/31/18 19:46 PT/INR, D-dimer PT 11.4 Seconds (9.4-12.1) 10/31/18 15:40 - Impressions Impressions Brain MRI 11/01/18 18:25 IMPRESSION: 1. No acute intracranial abnormality. No acute infarct. 2. Minimal chronic microvascular ischemic changes. 3. Chronic lacunar infarcts in the cerebellar hemispheres bilaterally. D/ / Mohamud Tyler MD / Mohamud Tyler MD Interpreting Provider: Mohamud Tyler MD Consult Discharge Plan - Plan Referrals: Josr Patel MD [Primary Care Provider] - (2) Lower extremity neuropathy Qualifiers: Laterality: bilateral Qualified Code(s): G57.93 - Unspecified mononeuropathy of bilateral lower limbs (4) Hyperlipidemia Qualifiers: Hyperlipidemia type: mixed hyperlipidemia Qualified Code(s): E78.2 - Mixed hyperlipidemia (5) Hypertension Qualifiers: Hypertension type: essential hypertension Qualified Code(s): I10 - Essential (primary) hypertension (6) Carotid arterial disease Qualifiers: Laterality: bilateral (7) CAD (coronary artery disease) Qualifiers: Coronary Disease-Associated Artery/Lesion type: [place] artery [place] vs. transplanted heart: [place] heart Associated angina: without angina Qualified Code(s): I25.10 - Atherosclerotic heart disease of [place] coronary artery without angina pectoris
--- NOTE | 2018-11-02 08:21 | EEG/EMG/Oth Biometrics Report ---
EEG Procedure Report Date of procedure: 11/02/18 EEG Procedure: Routine EEG Procedure Note: This is a report of a 21 channel bipolar and referential montage EEG. A posterior dominant rhythm of 8-10 Hz moderate voltage alpha frequency is identified symmetrically in the posterior head regions. This rhythm attenuates symmetrically with eye opening. Hyperventilation is performed and does not significantly alter the recording. Periods of drowsiness and stage II sleep are identified as referenced by dropout of posterior dominant rhythm and emergence of vertex activity K complexes and sleep spindles. Photic stimulation is performed and produces a symmetric driving response. The EKG rhythm strip reveals sinus bradycardia at 54 bpm Impressions: This EEG recording is within normal limits. There is no evidence of epileptiform activity identified during the recording. Sinus bradycardia is present at 54 bpm. Comment: A normal EEG does not preclude a diagnosis of seizure or epilepsy. If the clinical suspicion for seizure activity is high, serial EEGs or perhaps a prolonged recording may increase the yield. Please correlate clinically.
[2018-11-02] MEDS: Insulin LISPRO 300 UNITS/3 ML VIAL SQ SCH ×2 (08:48→12:01)
[2018-11-02] MEDS: Aspirin Enteric Coated 81 MG Tablet PO SCH (08:49)
[2018-11-02] MEDS: Isosorbide MONOnitrate (24 HR) 30 MG TAB.ER.24H PO SCH (08:49)
[2018-11-02] MEDS: Metoprolol XL (24 HR) Succ 50 MG TAB.ER.24H PO SCH (08:49)
[2018-11-02] MEDS: Gabapentin 300 MG CAPSULE PO SCH ×2 (08:49→14:17)
--- NOTE | 2018-11-02 11:08 | Neurology Progress Note ---
<Bayron Parikh M - Last Filed: 11/02/18 11:04> Date of Encounter: 11/02/18 Time of Encounter: 09:00 Assessment and Plan (1) Syncope Status: Acute Outside of bilateral distal peripheral neuropathy secondary to diabetes, patient has no focal neurological deficits on examination. EEG was read by Dr. Silvestre and was normal without epileptiform discharge. MRI showed chronic lacunar infarcts in cerebellar hemispheres which would be unlikely to contribute much to patients episodes. Remains unlikely to be primarily neurological cause but prolonged EEG in the outpatient setting especially if an episode of passing out is caught on it, may be beneficial in ruling out seizures. Further recommendations per Dr. Silvestre, attending neurologist. Qualifiers: Syncope type: vasovagal syncope Qualified Code(s): R55 - Syncope and collapse Subjective Principal diagnosis: Syncope Interval history: Ms. Weir was seen today at bedside. She states she is feeling better today and denies having any passing out spells while in the hospital. She is still on hall monitor at this time. Patient feels she is ready to go home and continue her work up outpatient. We discussed the results of her EEG and she was relieved that no seizure activity was found. We discussed prolonged EEG for attempting to record neuronal activity during one of these loss of consciousness episodes although it was clarified that at this time epilepsy seems an unlikely cause of her current episodes. Results of MRI were explained and patients questions regarding lacunar infarcts were answered. Results of Carotid were also discussed with patient. She is hoping to discharge this afternoon. Objective - Constitutional Vitals: Temp Pulse Resp BP Pulse Ox 99.3 F 60 16 159/74 96 11/02/18 08:02 11/02/18 08:02 11/02/18 08:02 11/02/18 08:02 11/02/18 08:02 Exam: Exam: GENERAL: Comfortable in no acute distress HEENT: Normal LUNGS: CTA HEART: RRR, S1 S2 Audible, no murmur EXTREMITIES: No Pedal edema. DETAILED NEUROLOGICAL EXAMINATION: MENTAL STATUS: Oriented to person, place, date and situation. Memory: knows the President, Aware of recent events No deficits in recent memory on testing today Attention span is normal Cranial Nerve Examination: CN - II: Visual Acuity, Field of Vision Normal, Pupils- size shape reaction to light and accommodation: All normal. CN III, IV, : External ocular movements were intact, Pupils were reactive, Nodrooping of the eyelids CN V: Sensation over the face to light touch and pinprick all normal. Corneal reflexes not tested CN VII: No facial asymmetry, no flattening of nasolabial folds, no difficulty in closing the eyes, no loss of forehead wrinkles, no difficulty in eye-closure, frowning raising eyebrows. CNVIII: No significant hearing loss CN IX, X: Uvula centralized not deviated, Gag reflex: Not tested CN X1: Sternocleidomastoid, trapezius, normal without evidence of any weakness. CN X11: No Dysarthria, no wasting or fibrilation of tongue muscles, no deviation, tongue muscle strength normal. Motor examination: No hypertrophy, tone was normal, power grade Upper limbs Proximal- No difficulty in lifting the arms above the head. Distal- No weakness in distal muscles On formal testing 5/5 all over Lower limbs On formal testing 5/5 all over Coordination: Duslak-[id number] normal. Target pursuit normal finger tapping normal, Rapid alternating moment of wrist normal Sensory system: Superficial sensations- Touch normal throughout except to distal bilateral lower extremities where there is marked sensory losses with patient unable to localize even touch. Pain- Pinprick normal throughout except for distal bilateral lower extremities where patient did not register pinprick, Deep sensation normal, Joint position sense normal except in m etatarsals/phalanges of both feet where patient was unable to accurately describe position of toes with eyes closed. Cortical sensation, Tactile discrimination, localization and extinction all normal except as listed above with tactile discrimination and localization to bilateral feet markedly diminished. Deep tendon reflexes symmetric bilateral No sign of meningeal irritation Gait Examination: Deferred Results - Laboratory Findings CBC and BMP: 11/02/18 04:59 11/02/18 04:59 Abnormal lab findings: Abnormal lab results WBC 11.3 K/mcL (4.3-11.1) H 10/31/18 15:40 RBC 3.81 M/mcL (3.82-4.97) L 11/01/18 03:19 Hgb 11.2 g/dL (11.5-15.4) L D 11/01/18 03:19 Hct 33.9 % (35.3-44.9) L 11/01/18 03:19 ESR 21 mm/hr (0-15) H 10/31/18 19:30 ABG pO2 72 mmHg (85-104) L 10/31/18 19:46 ABG O2 Saturation 94 % (95-98) L 10/31/18 19:46 ABG Base Excess -3 mEq/L (-2 to 3) L 10/31/18 19:46 Sodium 135 mEq/L (136-145) L 10/31/18 15:40 Chloride 108 mEq/L (98-107) H 11/02/18 04:59 Carbon Dioxide 21 mEq/L (23-29) L 11/02/18 04:59 Creatinine 1.25 mg/dL (0.60-1.20) H 10/31/18 15:40 Est GFR ( Amer) 53 (> 60) L 10/31/18 15:40 Est GFR (Non-Af Amer) 55 (> 60) L 11/01/18 03:19 Glucose 192 mg/dL (70-105) H 11/02/18 04:59 POC Glucose 278 mg/dL (70-99) H 11/01/18 15:42 Hemoglobin A1c 9.7 % (-5.6) H 11/01/18 03:19 Lactic Acid 3.5 mmol/L (0.5-2.2) H 10/31/18 15:40 Alkaline Phosphatase 108 Units/L (34-104) H 10/31/18 15:40 Serum Total Protein 5.9 g/dL (6.4-8.9) L 11/01/18 03:19 Triglycerides 316 mg/dL (< 150) H 11/01/18 03:19 VLDL Cholesterol, Calc 63 mg/dL (< 31) H 11/01/18 03:19 HDL Cholesterol 26 mg/dL (40-59) L 11/01/18 03:19 Vitamin B12 221 pg/mL (250-1100) L 10/31/18 19:30 Urine Glucose (UA) 500 mg/dL (Normal) H 10/31/18 16:34 Salicylates < 2.5 mg/dL (15.0-30.0) L 10/31/18 19:30 Acetaminophen < 10 mcg/mL (10-20) L 10/31/18 19:30 Consult Discharge Plan - Plan Instructions: Gabapentin (By mouth), Coronary Artery Disease (GEN), Syncope (DC) Additional Instructions: You were admitted to the hospital for altered mental status likely due to adverse medication effects in the setting of chronic vascular disease. A brain MRI did not show any new changes. An EEG did not show any seizure activity. A carotid ultrasound did show existing stenosis of those vessels. Several of your medications were changed to decrease the chances of recurring symptoms. - Please stop taking metformin and zanaflex - Dose of gabapentin has been changed to 600 mg by mouth three times a day - Please take caution regarding starting new supplements and consult your primary care doctor regarding them Please follow up outpatient with your neurologist and vascular surgeon to discuss further evaluation and management. Please also follow up with your primary care doctor to discuss your hospitalization. Please return to the emergency department should you experience worsening of your symptoms, such as severe headache, chest pain, loss of consciousness, difficulty breathing, nausea, vomiting, fevers, and chills. Referrals: Josr Patel MD [Primary Care Provider] - 11/05/18 2:45 pm (This appointment will be with Dr. Garcia) Ben Silvestre DO [Partnered Physician] - 12/02/18 8:15 am Jayjay Armando MD [Partnered Physician] - 11/10/18 1:30 pm Prescriptions: Gabapentin 600 mg PO TID #21 tablet <Ben Silvestre - Last Filed: 11/02/18 16:33> Date of Encounter: 11/02/18 Assessment and Plan (1) Syncope Status: Acute I have personally performed a [id number] assessment of the patient and have reviewed the PA/INDUSTRIAL SWEEPER CLEANER note. My impressions are as follows: Case was discussed with Dr. Parikh. I agree with his impressions and plan as stated above. I did independently reviewed EEG as well as the MRI scan of the brain. Time spent with patient today was 25 minutes which greater than 50% of that time was spent in [id number] contact consisted of counseling and coordinating care. Patient should follow up with her primary care provider for ongoing risk factor management. Patient should also be seen by vascular surgery to serially follow the left internal carotid artery stenosis. We will reevaluate at your request. Qualifiers: Syncope type: vasovagal syncope Qualified Code(s): R55 - Syncope and collapse Subjective Interval history: The chart was reviewed, the patient was seen and examined independently. Case was discussed with Dr. Parikh. I agree with his assessment of the history of present illness as documented above. Patient EEG study was completely normal. MRI scan of the brain revealed some ischemic change however does not reveal a lesion that is likely to be comparable with seizure activity. Carotid Doppler study revealed 60-79% stenosis of the left ICA. Objective - Constitutional Vitals: Temp Pulse Resp BP Pulse Ox 98.9 F 70 17 153/68 98 11/02/18 11:53 11/02/18 11:53 11/02/18 11:53 11/02/18 11:53 11/02/18 11:53 Exam: I have personally performed a [id number] assessment of the patient and have reviewed the PA/INDUSTRIAL SWEEPER CLEANER note. My impressions are as follows: I agree with the neurologic examination is documented above. Results - Laboratory Findings CBC and BMP: 11/02/18 04:59 11/02/18 04:59 Abnormal lab findings: Abnormal lab results WBC 11.3 K/mcL (4.3-11.1) H 10/31/18 15:40 RBC 3.81 M/mcL (3.82-4.97) L 11/01/18 03:19 Hgb 11.2 g/dL (11.5-15.4) L D 11/01/18 03:19 Hct 33.9 % (35.3-44.9) L 11/01/18 03:19 ESR 21 mm/hr (0-15) H 10/31/18 19:30 ABG pO2 72 mmHg (85-104) L 10/31/18 19:46 ABG O2 Saturation 94 % (95-98) L 10/31/18 19:46 ABG Base Excess -3 mEq/L (-2 to 3) L 10/31/18 19:46 Sodium 135 mEq/L (136-145) L 10/31/18 15:40 Chloride 108 mEq/L (98-107) H 11/02/18 04:59 Carbon Dioxide 21 mEq/L (23-29) L 11/02/18 04:59 Creatinine 1.25 mg/dL (0.60-1.20) H 10/31/18 15:40 Est GFR ( Amer) 53 (> 60) L 10/31/18 15:40 Est GFR (Non-Af Amer) 55 (> 60) L 11/01/18 03:19 Glucose 192 mg/dL (70-105) H 11/02/18 04:59 POC Glucose 278 mg/dL (70-99) H 11/01/18 15:42 Hemoglobin A1c 9.7 % (-5.6) H 11/01/18 03:19 Lactic Acid 3.5 mmol/L (0.5-2.2) H 10/31/18 15:40 Alkaline Phosphatase 108 Units/L (34-104) H 10/31/18 15:40 Serum Total Protein 5.9 g/dL (6.4-8.9) L 11/01/18 03:19 Triglycerides 316 mg/dL (< 150) H 11/01/18 03:19 VLDL Cholesterol, Calc 63 mg/dL (< 31) H 11/01/18 03:19 HDL Cholesterol 26 mg/dL (40-59) L 11/01/18 03:19 Vitamin B12 221 pg/mL (250-1100) L 10/31/18 19:30 Urine Glucose (UA) 500 mg/dL (Normal) H 10/31/18 16:34 Salicylates < 2.5 mg/dL (15.0-30.0) L 10/31/18 19:30 Acetaminophen < 10 mcg/mL (10-20) L 10/31/18 19:30
[2018-11-02 11:59] VITALS: BP 153/68
--- NOTE | 2018-11-02 13:23 | Electrocardiograph Report ---
[address] [address] Test Date: 2018-11-02 Pat Name: Haylee Weir Department: 111 Room: 2NE34 Gender: F Acid Tender: Jose : 1960 Requested By: Stacy Go Order Number: [id number] Reading MD: Mane Rm Measurements Intervals [place] Rate: 53 P: 31 MT: 160 QRS: 2 QRSD: 93 T: -26 QT: 415 QTc: 398 Interpretive Statements SINUS BRADYCARDIA MODERATE VOLTAGE CRITERIA FOR LVH, CONSIDER NORMAL VARIANT NONSPECIFIC T-WAVE ABNORMALITY Electronically Signed On 11-02-2018 13:22:26 EDT by Mane Rm
--- NOTE | 2018-11-02 14:30 | Discharge Summary ---
<Jaxson Walton - Last Filed: 11/02/18 15:03> - NOTES TO OUTPATIENT PROVIDER Notes to Outpatient Provider: Patient was admitted to the hospital for altered mental status. Please follow up with patient outpatient for discussion of hospitalization and for further management. Pending orders to follow up: blood cultures, ANDREW, ethylene glycol, gapapentin level. She has been given outpatient follow up to neurology and vascular surgery. Patient was also given follow up for neurology and vascular surgery. We have stopped her metformin and zanaflex to reduce effects of potential polypharmacy. Gabapentin was decreased to 600 mg TID. Orders not resulted at time of discharge: Pending orders 10/31/18 15:40 Culture,Blood [BC] Stat 10/31/18 19:30 ANDREW IgG JULIETTE rflx IFA Routine Ethylene Glycol Stat Gabapentin Stat Date of Encounter: 11/02/18 Time of Encounter: 14:28 - Discharge Diagnosis (1) Altered mental status Priority: Primary Status: Resolved Qualifiers: Altered mental status type: unspecified Qualified Code(s): R41.82 - Altered mental status, unspecified (2) MICAH (acute kidney injury) Priority: Secondary Status: Resolved (3) Lactic acidosis Priority: Secondary Status: Resolved (4) Diabetes Priority: Secondary Status: Chronic Qualifiers: Diabetes mellitus type: type 2 Diabetes mellitus bit tripoler insulin use: with nursing home use Diabetes mellitus complication status: with circulatory complication Diabetes mellitus complication detail: with other circulatory complications Qualified Code(s): E11.59 - Type 2 diabetes mellitus with other circulatory complications; Z79.4 - skilled nursing (current) use of insulin (5) Hyperlipidemia Priority: Secondary Status: Chronic Qualifiers: Hyperlipidemia type: mixed hyperlipidemia Qualified Code(s): E78.2 - Mixed hyperlipidemia (6) Hypertension Priority: Secondary Status: Chronic Qualifiers: Hypertension type: essential hypertension Qualified Code(s): I10 - Essential (primary) hypertension (7) CAD (coronary artery disease) Priority: Secondary Status: Chronic Qualifiers: Coronary Disease-Associated Artery/Lesion type: [place] artery [place] vs. transplanted heart: [place] heart Associated angina: without angina Qualified Code(s): I25.10 - Atherosclerotic heart disease of [place] coronary artery without angina pectoris Hospital course: Ms. Weir is a 58 year old female with a history of CAD, hypertension, hyperlipidemia, diabetes, autonomic neuropathy, and peripheral vascular disease. She presented to the ED via EMS for evaluation of a 2-3 day history of increased somnolence and decreased mentation. Family reports that the patient has reported increased fatigue and weakness over the last several months, with multiple falls and near syncopal episodes. They report that these episodes occur both while ambulating and at rest, with one episode occurring while on the toilet in the bathroom of her doctor's office. They report that the most recent episode occurred while she was sitting on the couch with family, and describe it as the patient becoming "unresponsive", which they estimate lasted approximatel y 10-20 minutes. Once this resolved patient did not appear to be confused, but did report increased fatigue. They estimate that these episodes occur ~1x/week, and are not associated with any particular triggers or events. Per family, patient has not had any recent illnesses or significant medication changes. She did undergo LHC in August of this year, with placement of a stent in the right RCA. Initial vital signs obtained in the emergency department were as follows: temperature 98.6, HR 74, RR 20, BP 104/56, and oxygen saturation 97%. Labs significant for WBC 11.3, sodium 135, CO2 20, creatinine 1.25, glucose 277, and lactic acid 3.5. Urinalysis was only significant for glucosuria. UDS negative, and head CT demonstrated no acute abnormalities. CT of the chest demonstrated mild emphysema with a few scattered tiny indeterminate noncalcified pulmonary nodules. Abdominal CT demonstrated minimal thickening of the bladder wall, but no acute abdominopelvic findings. At admission, she appeared to be resting comfortably, and would wake up with a combination of verbal and tactile stimulus; however, she did quickly returned to sleep, sometimes drifting off before answering questions posed to her. Review of systems is significant for generalized weakness and fatigue, shortness of breath, generalized myalgias, and low back pain. A Brain MRI showed no acute changes and chronic lacunar infarcts. EEG showed no seizure or epileptiform activity. Patient's metformin, zanaflex, and gabapentin were held, after which her mentation signficantly improved after the first hospital day. A carotid u ltrasound showed L proximal ICA and mid ICA with severe 60-79% stenosis. Neurology felt that patient does not have a primary neurological disorder, but may do prolonged EEG in the outpatient setting. Symptoms were likely due to a combination of adverse effects of medications/polypharmacy in the context of significant vascular disease. Patient to be discharged home in stable condition with follow up to PCP, neurologist, and vascular surgeon. Zanaflex, metformin discontinued. Gabapentin changed to 600mg TID. Return precautions were provided. Discharge discussed with: patient, nurse Time spent discussing smoking cessation with patient: 3 to 10 minutes - Time Spent with Patient Total time spent providing and/or coordinating discharge services: Time spent: Less than 30 minutes - Discharge Medications Prescriptions: New Gabapentin 600 mg PO TID #21 tablet Continued Losartan Potassium [Cozaar] 50 mg PO DAILY Insulin Glargine,Hum.rec.anlog [Lantus Solostar] 50 unit SQ HS Insulin ASPART [Novolog Flexpen] 0 - 12 unit SQ TIDWM Aspirin Enteric Coated [Aspirin EC] 81 mg PO DAILY Clopidogrel [Plavix] 75 mg PO DAILY #30 tablet Isosorbide MONOnitrate [Isosorbide Mononitrate ER] 30 mg PO DAILY Cholecalciferol (Vitamin D3) [Vitamin D3] 5,000 unit PO DAILY Metoprolol Succinate [Toprol Xl] 50 mg PO DAILY PARoxetine HCl [Paroxetine HCl] 40 mg PO DAILY Rosuvastatin Calcium 20 mg PO DAILY Discontinued Gabapentin [Neurontin] 900 mg PO TID Tizanidine HCl [Zanaflex] 4 mg PO TID PRN PRN Reason: Muscle Spasm Metformin HCl [Glucophage] 1,000 mg PO BID #0 Home Medications: Insulin ASPART [Novolog Flexpen] 0 - 12 unit SQ TIDWM 07/17/15 [History] Insulin Glargine,Hum.rec.anlog [Lantus Solostar] 50 unit SQ HS 07/17/15 [History] Losartan Potassium [Cozaar] 50 mg PO DAILY 07/17/15 [History] Aspirin Enteric Coated [Aspirin EC] 81 mg PO DAILY 09/14/15 [History] Clopidogrel [Plavix] 75 mg PO DAILY #30 tablet 04/10/17 [Rx] Cholecalciferol (Vitamin D3) [Vitamin D3] 5,000 unit PO DAILY 08/18/18 [History] Isosorbide MONOnitrate [Isosorbide Mononitrate ER] 30 mg PO DAILY 08/18/18 [History] Metoprolol Succinate [Toprol Xl] 50 mg PO DAILY 08/18/18 [History] PARoxetine HCl [Paroxetine HCl] 40 mg PO DAILY 08/18/18 [History] Rosuvastatin Calcium 20 mg PO DAILY 08/18/18 [History] Gabapentin 600 mg PO TID #21 tablet 11/02/18 [Rx] Allergies/Adverse Reactions: Allergy/AdvReac Type Severity Reaction Status Date / Time aspirin Allergy Mild See Verified 08/18/18 20:24 Comments Penicillins [PCN] Allergy Rash Verified 08/18/18 20:24 duloxetine [From Cymbalta] AdvReac Headache Verified 08/18/18 20:24 Date of admission: 10/31/18 19:50 Primary care physician: Josr Patel MD Consults: 10/31/18 18:27 Consult to Neurology [CONS] Routine Consulting Provider: [facility] Reason for Consult: AMS Call Completed: Yes 11/01/18 10:06 Consult to Interpret Exam [CONS] Routine Consulting Provider: Ben Silvestre Consult to Interpret Exam: Interpret EEG 11/02/18 09:04 Consult to Nutrition [CONS] Routine Comment: Consulting Provider: NUTRITION Reason for Dietary Consult: Diet Education Discharging clinician: Valerie tSearns Anticipated date of discharge: 11/02/18 - Constitutional Vitals: Temp Pulse Resp BP Pulse Ox 98.9 F 70 17 153/68 98 11/02/18 11:53 11/02/18 11:53 11/02/18 11:53 11/02/18 11:53 11/02/18 11:53 Exam: GENERAL: Conversant, well-developed, well-nourished adult female sitting on chair in no acute distress. HEENT: Atraumatic and normocephalic. Mucous membranes appear dry. CARDIOVASCULAR: Regular rate and rhythm. S1 and S2 present. No murmurs, gallops, or rubs. RESPIRATORY: Clear to auscultation bilaterally. Chest rises and falls symmetrically without accessory muscle use. GASTROINTESTINAL: Bowel sounds present 4 quadrants. Abdomen is soft, nontender and nondistended. : No suprapubic or CVA tenderness. EXTREMITIES: No clubbing, cyanosis, or edema. Patient is non-tender to palpation of bilateral lower extremities. SKIN: Warm, dry, and intact. No rashes, wounds, or discoloration. NEUROLOGIC: AOx3 this morning. UE and LE strength improving since yesterday's exam, 06/18 today. No apparent focal deficits. PSYCHIATRIC: Appropriate affect, no anxious or depressed mood. - Patient Status Disposition: Home, Self-Care Condition: Fair Functional capacity at discharge: independent ambulation Overall status at discharge: patient is progressing back to baseline - Discharge Instructions Instructions: Gabapentin (By mouth), Coronary Artery Disease (GEN), Syncope (DC) Follow Up With: Josr Patel MD [Primary Care Provider] - 11/05/18 2:45 pm (This appointment will be with Dr. Garcia) Ben Silvestre DO [Partnered Physician] - 12/02/18 8:15 am Jayjay Armando MD [Partnered Physician] - 11/10/18 1:30 pm Additional Instructions: You were admitted to the hospital for altered mental status likely due to adverse medication effects in the setting of chronic vascular disease. A brain MRI did not show any new changes. An EEG did not show any seizure activity. A carotid ultrasound did show existing stenosis of those vessels. Several of your medications were changed to decrease the chances of recurring symptoms. - Please stop taking metformin and zanaflex - Dose of gabapentin has been changed to 600 mg by mouth three times a day - Please take caution regarding starting new supplements and consult your primary care doctor regarding them Please follow up outpatient with your neurologist and vascular surgeon to discuss further evaluation and management. Please also follow up with your primary care doctor to discuss your hospitalization. Please return to the emergency department should you experience worsening of your symptoms, such as severe headache, chest pain, loss of consciousness, difficulty breathing, nausea, vomiting, fevers, and chills. - Diet and Activity Activity: increase activity as tolerated, resume usual activities as tolerated Diet: diabetic diet (cardiac) <Valerie Stearns - Last Filed: 11/03/18 00:04> Orders not resulted at time of discharge: Pending orders 10/31/18 15:40 Culture,Blood [BC] Stat 10/31/18 19:30 ANDREW IgG JULIETTE rflx IFA Routine Ethylene Glycol Stat Gabapentin Stat Date of Encounter: 11/03/18 Hospital course: Ms. Weir is a 58 year old female - Time Spent with Patient Total time spent providing and/or coordinating discharge services: Date of admission: 10/31/18 19:50 Primary care physician: Josr Patel MD Consults: 10/31/18 18:27 Consult to Neurology [CONS] Routine Consulting Provider: [facility] Reason for Consult: AMS Call Completed: Yes 11/01/18 10:06 Consult to Interpret Exam [CONS] Routine Consulting Provider: Ben Silvestre Consult to Interpret Exam: Interpret EEG 11/02/18 09:04 Consult to Nutrition [CONS] Routine Comment: Consulting Provider: NUTRITION Reason for Dietary Consult: Diet Education - Constitutional Vitals: Temp Pulse Resp BP Pulse Ox 98.9 F 70 17 153/68 98 11/02/18 11:53 11/02/18 11:53 11/02/18 11:53 11/02/18 11:53 11/02/18 11:53 - Attending Attestation I examined this patient and my medical decision-making was reviewed with the resident physician. I agree with the documented findings, disposition and treatment plan as described except to the extent set forth below. Patient had extensive workup for encephalopathy. The main intervention that noticeably returned patient to baseline mental status was IV fluids. Labs and physical exam was consistent with dehydration. There is concern for polypharmacy causing symptoms, although not absolutely clear. Neurology did evaluate patient and based on negative testing including MRI, EEG, and other findings, this is less likely neurologic in origin. She was discharged home in stable condition. Metformin discontinued on discharge, patient does use insulin sliding scale at home which will help to regulate glucose. Will need re evaluation as outpatient if metformin should be resumed. Was held at this time due to elevated lactic acid caused by dehydration.
[2018-11-03 11:26] LABS: ANA IgG by ELISA NONE DETECTED (None Detected); Ethylene Glycol <5 mg/dL
[2018-11-03 13:17] LABS: Gabapentin 15.4 ug/mL (2.0-20.0)
== END 2018-11-02 15:57 | disposition home or self-care (01) ==
LOC: 2NENU 15:22 → EMEROOARM 15:22 → SUATTDRO 19:50 → 2NENU 20:24
PROVIDERS: ADMIT Internal Medicine; ATTEND Student in an Organized Health Care Education/Training Program